=== PATIENT | female | born 1955 | race Caucasian/White ===

== ENCOUNTER 2017-06-05 09:08 | Inpatient (IN) | payer BC ==
[2017-06-05] VITALS (10 sets, daily range): BP systolic 98–132; BP diastolic 54–72; PULSE 78–107; RESP 20; TEMP 97.9–99; O2SAT 87–98
[~2017-06-05] VITALS: Ht 165.1 cm; Wt 62.4 kg
[~2017-06-05 09:08] MED LIST: CALC600T10 PO; GABA100C4 PO; HYDR-3533 PO; KRIL1CAP9 PO; MELO7.5 PO; MONT10TA2 PO; MSIR15 PO; MULT1TAB46 PO; NORC10TA2 PO; PROM25SU8 PO; PROT40TA PO; SPIR25TA PO; SUCR1TAB PO; TAMS0.4C4 PO
--- NOTE | 2017-06-05 09:37 | PD ---
HPI Chief Complaint: right-sided chest pain Time Seen by Provider: 09:28 Travel History International Travel<30 days: No Contact w/Intl Traveler<30days: No Traveled to known affect area: No History of Present Illness HPI This 62-year-old female says she been having right-sided chest pain for the last 2 days. Pain is aggravated by deep breathing. She's been coughing up some brownish phlegm. She does not smoke. She was recently in [place] and returned about a week or 2 ago. The person she was staying with was coughing While there she killed a scorpion but didn't think she was bitten by it. She did bruise her left arm. She has a [id number] history of smoking. She does see Dr. JUAN DANIEL persaud HASmaoen following her for lung nodules. She had a scan of the chest April 29 of this year which indicates the left lung was clear there was minimal scarring at the right lung base and very subtle history and but infiltrate in the right upper and lower lobes as well as the right middle lobe which had been noted on previous CT scans. She has a history of migraine headaches and says she is having a migraine now. She has taken Imitrex in the past PFSH Past Medical History Hx Anticoagulant Therapy: No Cancer: No Cardiovascular Problems: No Chemotherapy: No Cerebrovascular Accident: No Diabetes: No Diminished Hearing: No Endocrine: No Genitourinary: Yes (BLADDER SPASM) Hepatitis: No Hiatal Hernia: No Immune Disorder: No Insomnia: Yes Musculoskeletal: Yes (ARTHRITIS) Neurologic: No Psychiatric: No Reproductive: No Respiratory: No Thyroid Disease: No Past Surgical History AICD: No Body Medical Devices: RIGHT ANKLE PINS Hysterectomy: No Joint Replacement: Yes (LEFT HIP) Pacemaker: No Social History Alcohol Use: Yes Tobacco Use: No Substance Use: No Allergies-Medications (Allergen,Severity, Reaction): Coded Allergies: penicillin G (Unverified Allergy, Severe, 06/05/17) Reported Meds & Prescriptions Reported Meds & Active Scripts Active Reported Sucralfate 1 Gram Tab 1 Gm PO TID on empty stomach Meloxicam 7.5 Mg Tab 7.5 Mg PO BID Singulair (Montelukast Sodium) 10 Mg Tab 10 Mg PO HS Tamsulosin (Tamsulosin HCl) 0.4 Mg Cap 0.8 Mg PO HS Multiple Vitamin 1 Tab 1 Tab PO DAILY Protonix (Pantoprazole Sodium) 40 Mg Tab 40 Mg PO DAILY Spironolactone 25 Mg Tab 25 Mg PO DAILY Morphine ER (Morphine Sulfate) 15 Mg Tab 15 Mg PO Q8H Gabapentin 100 Mg Cap 100 Mg PO BID Review of Systems General / Constitutional: No: Fever, Chills Eyes: No: Diploplia, Blurred Vision HENT: No: Headaches, Vertigo Cardiovascular: No: Chest Pain or Discomfort, Palpitations Respiratory: Positive: Cough, Shortness of Breath, Pleuritic Pain Gastrointestinal: Positive: Nausea, No: Vomiting Genitourinary: No: Urgency, Frequency Skin: No Rash Neurologic: Positive: Weakness, Headache Endocrine: No: Heat Intolerance, Cold Intolerance Hematologic/Lymphatic: No: Easy Bruising Physical Exam Narrative GENERAL: Well-developed female SKIN: Focused skin assessment warm/dry. HEAD: Atraumatic. Normocephalic. EYES: Pupils equal and round. No scleral icterus. No injection or drainage. ENT: No nasal bleeding or discharge. Mucous membranes pink and moist. NECK: Trachea midline. No JVD. CARDIOVASCULAR: Regular rate and rhythm. No murmur appreciated. RESPIRATORY: There is accessory muscle use. There are bilateral rhonchi and wheezes. There are some rales more prominent on the right side GASTROINTESTINAL: Abdomen soft, non-tender, nondistended. Hepatic and splenic margins not palpable. MUSCULOSKELETAL: No obvious deformities. No clubbing. No cyanosis. No edema. There is some bruising on her left arm NEUROLOGICAL: Awake and alert. No obvious cranial nerve deficits. Motor grossly within normal limits. Normal speech. PSYCHIATRIC: Appropriate mood and affect; insight and judgment normal. Data Data Last Documented VS Vital Signs Date Time Temp Pulse Resp B/P (MAP) Pulse Ox O2 Delivery O2 Flow Rate FiO2 06/05/17 12:20 100 20 112/61 (78) 96 Nasal Cannula 2.00 06/05/17 09:30 97.9 Orders Orders Complete Blood Count With Diff (06/05/17 09:34) Comprehensive Metabolic Panel (06/05/17 09:34) Troponin I (06/05/17 09:34) D-Dimer (06/05/17 09:34) Magnesium (Mg) (06/05/17 09:34) Albuterol-Ipratropium Neb (Duoneb Neb) (06/05/17 09:45) Chest, Single Ap (06/05/17 09:56) B-Type Natriuretic Peptide (06/05/17 10:27) Blood Culture (06/05/17 10:27) Influenzae A/B Antigen (06/05/17 10:27) Ct Pulmonary Angiogram (06/05/17 10:27) Ceftriaxone Inj (Rocephin Inj) (06/05/17 10:45) Azithromycin Inj (Zithromax Inj) (06/05/17 10:45) Potassium Chloride (Kcl) (06/05/17 11:00) Iohexol 350 Inj (Omnipaque 350 Inj) (06/05/17 11:15) Ondansetron Inj (Zofran Inj) (06/05/17 11:45) Ketorolac Inj (Toradol Inj) (06/05/17 11:45) Electrocardiogram (06/05/17 ) Diet Regular Basic (06/05/17 Lunch) Sputum Fungus Cult And Stain (06/05/17 12:08) Admit Order (Ed Use Only) (06/05/17 12:19) Labs Laboratory Tests Test 06/05/17 09:43 06/05/17 09:44 White Blood Count 10.4 TH/MM3 Red Blood Count 4.99 MIL/MM3 Hemoglobin 14.1 GM/DL Hematocrit 44.4 % Mean Corpuscular Volume 88.8 FL Mean Corpuscular Hemoglobin 28.3 PG Mean Corpuscular Hemoglobin Concent 31.9 % Red Cell Distribution Width 13.2 % Platelet Count 296 TH/MM3 Mean Platelet Volume 7.8 FL Neutrophils (%) (Auto) 81.0 % Lymphocytes (%) (Auto) 10.1 % Monocytes (%) (Auto) 7.9 % Eosinophils (%) (Auto) 0.7 % Basophils (%) (Auto) 0.3 % Neutrophils # (Auto) 8.5 TH/MM3 Lymphocytes # (Auto) 1.0 TH/MM3 Monocytes # (Auto) 0.8 TH/MM3 Eosinophils # (Auto) 0.1 TH/MM3 Basophils # (Auto) 0.0 TH/MM3 CBC Comment DIFF FINAL Differential Comment D-Dimer Quantitative (PE/DVT) 2.90 MG/L FEU Blood Urea Nitrogen 11 MG/DL Creatinine 0.61 MG/DL Random Glucose 106 MG/DL Total Protein 6.4 GM/DL Albumin 3.1 GM/DL Calcium Level 8.8 MG/DL Magnesium Level 1.8 MG/DL Alkaline Phosphatase 74 U/L Aspartate Amino Transf (AST/SGOT) 16 U/L Alanine Aminotransferase (ALT/SGPT) 21 U/L Total Bilirubin 0.6 MG/DL Sodium Level 136 MEQ/L Potassium Level 3.3 MEQ/L Chloride Level 99 MEQ/L Carbon Dioxide Level 29.0 MEQ/L Anion Gap 8 MEQ/L Estimat Glomerular Filtration Rate 99 ML/MIN Troponin I LESS THAN 0.02 NG/ML B-Type Natriuretic Peptide 179 PG/ML MDM Medical Decision Making Medical Screen Exam Complete: Yes Emergency Medical Condition: Yes Medical Record Reviewed: Yes Differential Diagnosis Differential includes pulmonary embolus, pneumonia, COPD Narrative Course Chest x-ray showed bilateral infiltrates with questionable loss of volume on the right. Her d-dimer was quite elevated I did order a CT pulmonary angiogram. There is no evidence of pulmonary embolus. There are extensive nodular opacities in the lower lobes as well as the right upper lobe. Also scattered pulmonary nodules measuring up to 5 mm is extensive consolidation in the right upper and lower lobes with air bronchograms no endobronchial lesion is seen. Impression is pneumonia it is noted this could be atypical infection including sarcoid inflammatory etiologies of malignancy. 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
[2017-06-05] MEDS ORDERED: RESP: ALBUTEROL 2.5 MG/IPRATROPIUM 0.5 MG NEB (SCH) NEB ONE (09:45)
[2017-06-05 09:50] LABS: AUTOMATED NEUTROPHIL # 8.5 TH/MM3 (1.8-7.7); BASOPHIL % 0.3 % (0.0-2.0); EOSINOPHIL # 0.1 TH/MM3 (0-0.4); EOSINOPHIL % 0.7 % (0.0-4.0); HEMATOCRIT 44.4 % (35.0-46.0); LYMPH % 10.1 % (9.0-44.0); MEAN CELL VOLUME 88.8 FL (80.0-100.0); MEAN CORPUSCULAR HEMOGLOBIN 28.3 PG (27.0-34.0); MEAN CORPUSCULAR HGB CONC 31.9 % (32.0-36.0); MONO % 7.9 % (0.0-8.0); PLATELET COUNT 296 TH/MM3 (150-450); RED BLOOD COUNT 4.99 MIL/MM3 (4.00-5.30); RED CELL DISTRIBUTION WIDTH 13.2 % (11.6-17.2); WHITE BLOOD COUNT 10.4 TH/MM3 (4.0-11.0)
[2017-06-05 09:51] LABS: HEMO FLAGS DIFF FINAL
[2017-06-05 10:02] LABS: BLOOD UREA NITROGEN 11 MG/DL (7-18); MAGNESIUM 1.8 MG/DL (1.5-2.5)
[2017-06-05 10:05] LABS: ALT (GPT) 21 U/L (10-53); AST (GOT) 16 U/L (15-37)
[2017-06-05 10:06] LABS: ANION GAP 8 MEQ/L (5-15); CHLORIDE 99 MEQ/L (98-107); GLOMERULAR FILTRATION RATE 99 ML/MIN (>89); POTASSIUM 3.3 MEQ/L (3.5-5.1); SODIUM (NA) 136 MEQ/L (136-145)
[2017-06-05 10:09] LABS: TOTAL BILIRUBIN ADULT 0.6 MG/DL (0.2-1.0)
[2017-06-05 10:10] LABS: ALKALINE PHOSPHATASE 74 U/L (45-117)
--- NOTE | 2017-06-05 10:33 | RADRPT ---
EXAM DATE/TIME: 06/05/2017 10:03 [facility] COMPARISON: No previous studies available for comparison. [facility] INDICATIONS : Right sided chest pain & short of breath. MEDICAL HISTORY : Arthritis. asthma. SURGICAL HISTORY : Carpal tunnel syndrome. Lumbar surgery. Right ankle. Left hip replacement. ENCOUNTER: Initial ACUITY: 2 days PAIN SCORE: 6/10 LOCATION: Right chest FINDINGS: A single view of the chest demonstrates consolidation right upper lobe with volume loss. Left lung cl ear. Heart normal in size. Left-sided rib fractures are seen, appear subacute/chronic. CONCLUSION: Patchy consolidative changes right upper lobe with volume loss. Underlying mass cannot be excluded. C T chest recommended. Abhinav Greenberg MD on June 05, 2017 at 10:24 Board Certified Radiologist. This report was verified electronically.
[2017-06-05] MEDS ORDERED: AZITHROMYCIN INJ 500 MG in SODIUM CHLOR 0.9% 250 ML INJ 250 ML IV ONE (10:45)
[2017-06-05] MEDS ORDERED: cefTRIAXone INJ 2,000 MG in SODIUM CHLORIDE 0.9% INJ 100 ML IV ONE (10:45)
[2017-06-05] MEDS ORDERED: POTASSIUM CHLORIDE 20 MEQ CONTROLLED RELEASE TAB PO ONE (11:00)
[2017-06-05] MEDS ORDERED: GABA100C4 PO (11:11)
[2017-06-05] MEDS ORDERED: MULTTAB67 PO (11:11)
[2017-06-05] MEDS ORDERED: MELO7.5T27 PO (11:11)
[2017-06-05] MEDS ORDERED: TAMS0.4C4 PO (11:11)
[2017-06-05] MEDS ORDERED: MORP1TAB24 PO (11:11)
[2017-06-05] MEDS ORDERED: PROT40TA PO (11:11)
[2017-06-05] MEDS ORDERED: SPIR25TA PO (11:11)
[2017-06-05] MEDS ORDERED: MONT10TA2 PO (11:11)
[2017-06-05] MEDS ORDERED: SUCR1TAB PO (11:12)
[2017-06-05] MEDS ORDERED: IOHEXOL 350 MG/ML 10 ML VIAL (for RAD DIAG) IVCONTRAST ONE (11:15)
--- NOTE | 2017-06-05 11:33 | RADRPT ---
EXAM DATE/TIME: 06/05/2017 11:05 This report includes an Addendum and supersedes previous reports for this exam. [facility] COMPARISON: CHEST SINGLE AP, June 05, 2017, 10:03. INDICATIONS : Short of breath and cough. Right chest pain. Elevated D-dimer. Abnormal chest x- ray. IV CONTRAST: 75 cc Omnipaque 350 (iohexol) IV RADIATION DOSE: 9.32 CTDIvol (mGy) MEDICAL HISTORY : Asthma. SURGICAL HISTORY : Tubal ligation. ENCOUNTER: Initial ACUITY: 2 days PAIN SCALE: 5/10 LOCATION: Right chest TECHNIQUE: Volumetric scanning of the chest was performed using a pulmonary embolism protocol MIP images were reconstructed. Using automated exposure control and adjustment of the mA and/or kV acco rding to patient size, radiation dose was kept as low as reasonably achievable to obtain optimal diag nostic quality images. DICOM format image data is available electronically for review and compariso n. Follow-up recommendations for detected pulmonary nodules are based at a minimum on nodule size and pa tient risk factors according to Fleischner Society Guidelines. FINDINGS: PULMONARY ARTERIES:No filling defects are seen in the pulmonary arteries through the segmental level. LUNGS: Extensive nodular interstitial opacities in the lower lobes laterally as well as the right upper lobe. There are also scattered pulmonary nodules measuring up to 5 mm. There is extensive cent ral dense airspace consolidation in the right upper and lower lobes with air bronchograms. No definit aj central endobronchial lesion is demonstrated. PLEURAE: Small right-sided pleural effusion. MEDIASTINUM: Several slightly prominent mediastinal and right hilar lymph nodes. Heart is unremar kable without significant pericardial effusion. MUSCULOSKELETAL: Within normal limits for patient age. MISCELLANEOUS: The visualized upper abdominal organs demonstrate no acute abnormality. CONCLUSION: 1. No CT evidence for pulmonary artery embolism. 2. Extensive nodular interstitial opacities with scattered sub-5 mm pulmonary nodules throughout the right upper, lower and left lower lobes. 3. Extensive central dense airspace consolidation in the right upper and lower lobes with air broncho grams. No evidence for definite focal central lung or endobronchial lung mass. 4. Favor multilobar pneumonia or atypical infection although differential considerations include sarc oidosis, inflammatory etiologies and malignancy. Maged Murphy MD on June 05, 2017 at 11:18 Board Certified Radiologist. This report was verified electronically. ADDENDUM: The following was omitted from the report. The thyroid gland is heterogeneous and contains multiple n odules with a dominant 2 cm exophytic nodule in the left lobe. Further evaluation may be performed wi outpatient ultrasound as indicated. Maged Murphy MD on June 05, 2017 at 11:47 Board Certified Radiologist. This report was verified electronically.
[2017-06-05] MEDS ORDERED: KETOROLAC TROMETHAMINE 30 MG/ML (IVP) VIAL IV PUSH ONE (11:45)
[2017-06-05] MEDS ORDERED: ONDANSETRON HCL 4 MG/2 ML VIAL IV PUSH ONE (11:45)
--- NOTE | 2017-06-05 12:52 | HHI.HP ---
[facility] Service [facility] Primary Care Physician Slava Toledo MD Admission Diagnosis PNEUMONIA Diagnoses: (1) Pneumonia Chief Complaint: Shortness of breath Cough Travel History International Travel<30 Days: No Contact w/Intl Traveler <30 Da: No Traveled to Known Affected Are: No History of Present Illness Written by Ana Maria Shepherd, acting as scribe for Dr. Cummings on 06/05/17 at 12:43. Ms. Boo is a pleasant 62-year-old female patient with a known medical history of asthma, tobacco use history and chronic lung nodules who presented to the ED with worsening shortness of breath and cough. Patient states that she has recently traveled to [place] and arrived back here on Saturday and developed a productive cough with associated worsening shortness of breath on Saturday night. Patient states that she has a productive cough with brown/red coloration. She states that she also has chest pain associated with her cough. The chest pain is located in her right-sided chest that radiates to her back, rated a 4/10 on pain scale, worse with coughing and activity, constant and sharp in nature, denies any relieving factors. Denies any significant cardiac history. Patient does suffer from chronic back pain and has been taking PO Morphine with no relief. Denies any sick contacts. Denies frequent illness or any past fungal exposure. Denies any recent fever, chills, abdominal pain, nausea, vomiting or diarrhea. PCP is Dr. Amin. Steel Detailer is Dr. Presley. Review of Systems Constitutional: DENIES: Fever, Chills Eyes: COMPLAINS OF: Eye inflammation (right eye erythema), DENIES: Blurred vision, Diplopia Respiratory: COMPLAINS OF: Cough, Sputum production, Shortness of breath Cardiovascular: COMPLAINS OF: Chest pain, DENIES: Palpitations Gastrointestinal: DENIES: Abdominal pain, Constipation, Diarrhea, Nausea, Vomiting Psychiatric: DENIES: Anxiety Except as stated in HPI: all other systems reviewed are Neg Past Family Social History Past Medical History Asthma Arthritis Bladder spasm Tobacco abuse history Chronic lung nodules Past Surgical History Right rotator cuff repair Bilateral ankle repair Left hip replacement Reported Medications Active Reported Sucralfate 1 Gram Tab 1 Gm PO TID on empty stomach Meloxicam 7.5 Mg Tab 7.5 Mg PO BID Singulair (Montelukast Sodium) 10 Mg Tab 10 Mg PO HS Tamsulosin (Tamsulosin HCl) 0.4 Mg Cap 0.8 Mg PO HS Multiple Vitamin 1 Tab 1 Tab PO DAILY Protonix (Pantoprazole Sodium) 40 Mg Tab 40 Mg PO DAILY Spironolactone 25 Mg Tab 25 Mg PO DAILY Morphine ER (Morphine Sulfate) 15 Mg Tab 15 Mg PO Q8H Gabapentin 100 Mg Cap 100 Mg PO BID Allergies: Coded Allergies: penicillin G (Unverified Allergy, Severe, 06/05/17) Family History Maternal medical history significant for smoking history with COPD. Social History Admits to a [id number] smoking history. Denies any alcohol use. Denies any illicit drug use. Physical Exam Vital Signs Vital Signs Date Time Temp Pulse Resp B/P (MAP) Pulse Ox O2 Delivery O2 Flow Rate FiO2 06/05/17 11:00 107 20 120/58 (78) 95 Room Air 06/05/17 09:41 94 Room Air 06/05/17 09:30 97.9 105 20 132/64 (86) 97 Physical Exam GENERAL: This is a well-nourished, well-developed female patient, lying in bed on supplemental O2 with apparent shortness of breath, some accessory muscle use. SKIN: No rashes. Left forearm bruising and swelling patient states she bumped it a week ago. Diaphoretic and warm HEENT: Atraumatic. Normocephalic. Pupils equal round and reactive. Extraocular motions intact. No scleral icterus. No injection or drainage. Nose without bleeding. Uvula midline. Airway patent. NECK: Trachea midline. No JVD or lymphadenopathy. Supple. CARDIOVASCULAR: Regular rate and rhythm without murmurs, gallops, or rubs. RESPIRATORY: Crackles noted throughout all lung quiroz, elena right posterior upper and lower lobes. Breath sounds equal bilaterally. GASTROINTESTINAL: Abdomen soft, non-tender, nondistended. No guarding. MUSCULOSKELETAL: Extremities without clubbing, cyanosis, or edema. No joint tenderness, effusion, or edema noted. NEUROLOGICAL: Awake and alert. Cranial nerves II through XII intact. Motor and sensory grossly within normal limits. Five out of 5 muscle strength in all muscle groups. Normal speech. Laboratory Laboratory Tests Test 06/05/17 09:43 06/05/17 09:44 White Blood Count 10.4 Red Blood Count 4.99 Hemoglobin 14.1 Hematocrit 44.4 Mean Corpuscular Volume 88.8 Mean Corpuscular Hemoglobin 28.3 Mean Corpuscular Hemoglobin Concent 31.9 Red Cell Distribution Width 13.2 Platelet Count 296 Mean Platelet Volume 7.8 Neutrophils (%) (Auto) 81.0 Lymphocytes (%) (Auto) 10.1 Monocytes (%) (Auto) 7.9 Eosinophils (%) (Auto) 0.7 Basophils (%) (Auto) 0.3 Neutrophils # (Auto) 8.5 Lymphocytes # (Auto) 1.0 Monocytes # (Auto) 0.8 Eosinophils # (Auto) 0.1 Basophils # (Auto) 0.0 CBC Comment DIFF FINAL Differential Comment D-Dimer Quantitative (PE/DVT) 2.90 Blood Urea Nitrogen 11 Creatinine 0.61 Random Glucose 106 Total Protein 6.4 Albumin 3.1 Calcium Level 8.8 Magnesium Level 1.8 Alkaline Phosphatase 74 Aspartate Amino Transf (AST/SGOT) 16 Alanine Aminotransferase (ALT/SGPT) 21 Total Bilirubin 0.6 Sodium Level 136 Potassium Level 3.3 Chloride Level 99 Carbon Dioxide Level 29.0 Anion Gap 8 Estimat Glomerular Filtration Rate 99 Troponin I LESS THAN 0.02 B-Type Natriuretic Peptide 179 Date/Time Source Procedure Growth Status 06/05/17 11:00 Blood Peripheral Aerobic Blood Culture Pending Received 06/05/17 11:00 Blood Peripheral Anaerobic Blood Culture Pending Received 06/05/17 10:50 Nasal Washing Influenza Types A,B Antigen (GWENDOLYN) - Final NEGATIVE FOR FLU A AND B ANTIGEN.... Complete Result Diagram: 06/06/17 0430 06/06/[address] Angiography 06/05/17 1027 Signed Impressions: Service Date/Time: Monday, June 05, 2017 11:05 - CONCLUSION: 1. No CT evidence for pulmonary artery embolism. 2. Extensive nodular interstitial opacities with scattered sub-5 mm pulmonary nodules throughout the right upper , lower and left lower lobes. 3. Extensive central dense airspace consolidation in the right upper and lower lobes with air bronchograms. No evidence for definite focal central lung or endobronchial lung mass. 4. Favor multilobar pneumonia or atypical infection although differential considerations include sarcoidosis, inflammatory etiologies and malignancy. Maged Murphy MD ADDENDUM: The following was omitted from the report. The thyroid gland is heterogeneous and contains multiple nodules with a dominant 2 cm exophytic nodule in the left lobe. Further evaluation may be performed with outpatient ultrasound as indicated. Maged Murphy MD Chest X-Ray 06/05/17 0956 Signed Impressions: Service Date/Time: Monday, June 05, 2017 10:03 - CONCLUSION: Patchy consolidative changes right upper lobe with volume loss. Underlying mass cannot be excluded. CT chest recommended. Abhinav Greenberg MD Caprinzenno VTE Risk Assessment Caprini VTE Risk Assessment: No/Low Risk (score <= 1) Caprini Risk Assessment Model Point Value = 1 Point Value = 2 Point Value = 3 Point Value = 5 Age 41-60 Minor surgery BMI > 25 kg/m2 Swollen legs Varicose veins or History of unexplained or recurrent spontaneous Oral contraceptives or hormone replacement Sepsis (< 1 month) Serious lung disease, including pneumonia (< 1 month) Abnormal pulmonary function Acute myocardial infarction Congestive heart failure (< 1 month) History of inflammatory bowel disease Medical patient at bed rest Age 61-74 Arthroscopic surgery Major open surgery (> 45 min) Laparoscopic surgery (> 45 min) Malignancy Confined to bed (> 72 hours) Immobilizing plaster cast Central venous access Age >= 75 History of VTE Family history of VTE Factor V Leiden Prothrombin [id number] Lupus anticoagulant Anticardiolipin antibodies Elevated serum homocysteine Heparin-induced thrombocytopenia Other congenital or acquired thrombophilia Stroke (< 1 month) Elective arthroplasty Hip, pelvis, or leg fracture Acute spinal cord injury (< 1 month) Prophylaxis Regimen Total Risk Factor Score Risk Level Prophylaxis Regimen 0-1 Low Early ambulation 2 Moderate Order ONE of the following: *Sequential Compression Device (SCD) *Heparin 5000 units SQ BID 3-4 Higher Order ONE of the following medications: *Heparin 5000 units SQ TID *Enoxaparin/Lovenox 40 mg SQ daily (WT < 150 kg, CrCl > 30 mL/min) *Enoxaparin/Lovenox 30 mg SQ daily (WT < 150 kg, CrCl > 10-29 mL/min) *Enoxaparin/Lovenox 30 mg SQ BID (WT < 150 kg, CrCl > 30 mL/min) AND/OR *Sequential Compression Device (SCD) 5 or more Highest Order ONE of the following medications: *Heparin 5000 units SQ TID (Preferred with Epidurals) *Enoxaparin/Lovenox 40 mg SQ daily (WT < 150 kg, CrCl > 30 mL/min) *Enoxaparin/Lovenox 30 mg SQ daily (WT < 150 kg, CrCl > 10-29 mL/min) *Enoxaparin/Lovenox 30 mg SQ BID (WT < 150 kg, CrCl > 30 mL/min) AND *Sequential Compression Device (SCD) Assessment and Plan Problem List: (1) Pneumonia ICD Code: J18.9 - Pneumonia, unspecified organism Status: Acute Plan: Patient will be admitted for IV antibiotic administration. D-dimer upon presentation was 2.9. Chest CTA reviewed which was negative for PE. Extensive nodular interstitial opacities scattered. These are chronic and are being followed by Dr. Presley in the outpatient setting. Will attempt to obtain records of last CT for comparison. Follow. Also there is airspace consolidation in the right upper and lower lobes with air bronchograms. Start on Duonebs scheduled and PRN. BC have been drawn and pending. Follow. Monitor for any signs of infection. Patient has been afebrile. Influenza negative. CBC reviewed, WBC WNL. Supplemental O2 as needed. Continue cardiac telemetry. Was given Rocephin and Azithromycin IV in ED. Will continue Azithromycin IV. Additionally start on Levaquin IV. (2) Lung nodule, multiple ICD Code: R91.8 - Other nonspecific abnormal finding of lung field Status: Chronic Plan: Chest CTA reviewed, as above. Patient is being followed by Dr. Presley in the outpatient setting. Will request records of last CT scan and progress note for comparison. Continue to follow. (3) Hypokalemia ICD Code: E87.6 - Hypokalemia Plan: K 3.3 on presentation. Supplement given in ED. Follow BMP. Code Status DNR. Discussed Condition With Patient Physician Certification 2 Midnight Certification Type: Admission for Inpatient Services Order for Inpatient Services The services are ordered in accordance with Medicare regulations or non- Medicare payer requirements, as applicable. In the case of services not specified as inpatient-only, they are appropriately provided as inpatient services in accordance with the 2-midnight benchmark. Estimated LOS (days): 2 2 days is the estimated time the patient will need to remain in the hospital, assuming treatment plan goals are met and no additional complications. Post-Hospital Plan: Home Medical Decision Making Impression and Plan This note was transcribed by scribe [[email or web address]]. I, Dr. Chayo Cummings personally performed the history, physical exam, and medical decision making; and confirmed the accuracy of the information in the transcribed note. patient seen and examined in the ER with Niko, Note signed today Authenticated by Dr. Chayo Cummings on 06/06/17 at 12:42. Ana Maria Shepherd Jun 05, 2017 12:52 Chayo Cummings MD Jun 06, 2017 12:43
[2017-06-05] MEDS ORDERED: RESP: ALBUTEROL 2.5 MG/IPRATROPIUM 0.5 MG NEB (PRN) NEB (13:15)
[2017-06-05] MEDS ORDERED: SODIUM CHLORIDE 0.9% FLUSH 10 ML FLUSH IV FLUSH PRN (13:15)
[2017-06-05] MEDS ORDERED: MAGNESIUM HYDROXIDE SUSP 30 ML CUP PO PRN (13:15)
[2017-06-05] MEDS ORDERED: ACETAMINOPHEN 325 MG TAB PO PRN (13:15)
[2017-06-05] MEDS ORDERED: SENNOSIDES 8.6 MG TAB PO PRN (13:15)
[2017-06-05] MEDS ORDERED: BISACODYL 10 MG SUPP RECTAL PRN (13:15)
[2017-06-05] MEDS ORDERED: ONDANSETRON HCL 4 MG/2 ML VIAL IVP PRN (13:15)
[2017-06-05] MEDS ORDERED: NALOXONE HCL 0.4 MG/ML AMP IV PUSH PRN (13:15)
--- NOTE | 2017-06-05 14:52 | EKG ---
Date Performed: 06/05/2017 Time Performed: 09:24:19 PTAGE: 62 years EKG: SINUS TACHYCARDIA NONSPECIFIC T-WAVE ABNORMALITY ABNORMAL RHYTHM ECG PREVIOUS TRACING : 08/11/2015 23.46 DOCTOR: Eduardo Blanca Interpretating Date/Time 06/05/2017 14:50:33
[2017-06-05] MEDS: RESP: ALBUTEROL 2.5 MG/IPRATROPIUM 0.5 MG NEB (SCH) NEB ×2 (15:21→19:43)
[2017-06-05] MEDS: SODIUM CHLOR 0.45% 1000 ML INJ 1,000 ML IV SCH (16:55)
[2017-06-05] MEDS: LEVOFLOXACIN 750 MG PREMIX INJ 150 ML IV SCH (16:56)
[2017-06-05] MEDS: HEPARIN SODIUM - SQ 10,000 UNITS/ML VIAL SQ SCH (17:10)
[2017-06-05] MEDS: SODIUM CHLORIDE 0.9% FLUSH 10 ML FLUSH IV FLUSH SCH (20:53)
[2017-06-05] MEDS: DOCUSATE SODIUM 50 MG/SENNA 8.6 MG TAB PO SCH (20:54)
[2017-06-05] MEDS ORDERED: ESZOPICLONE 2 MG TAB PO ONE (23:00)
[2017-06-05] MEDS: TAMSULOSIN HCL 0.4 MG CAP PO SCH (23:15)
[2017-06-05] MEDS: MORPHINE SULFATE 15 MG CONTROLLED RELEASE TAB PO SCH (23:16)
[2017-06-05] MEDS: GABAPENTIN 100 MG CAP PO SCH (23:16)
[2017-06-05] MEDS ORDERED: ESZOPICLONE 1 MG TAB PO ONE (23:30)
[2017-06-05] MEDS ORDERED: ESZOPICLONE 3 MG TAB PO ONE (23:45)
[2017-06-06] VITALS (8 sets, daily range): BP systolic 102–126; BP diastolic 56–68; PULSE 87–219; RESP 16–20; TEMP 96.7–98.7; O2SAT 94–98
[2017-06-06] MEDS: MELOXICAM 7.5 MG TAB PO SCH ×3 (00:01→21:34)
[2017-06-06] MEDS: HEPARIN SODIUM - SQ 10,000 UNITS/ML VIAL SQ SCH ×2 (03:11→14:12)
[2017-06-06] MEDS: SODIUM CHLOR 0.45% 1000 ML INJ 1,000 ML IV SCH ×2 (03:12→14:12)
[2017-06-06 06:11] LABS: AUTOMATED NEUTROPHIL # 5.6 TH/MM3 (1.8-7.7); BASOPHIL # 0.1 TH/MM3 (0-0.2); BASOPHIL % 0.7 % (0.0-2.0); EOSINOPHIL # 0.1 TH/MM3 (0-0.4); EOSINOPHIL % 1.1 % (0.0-4.0); HEMATOCRIT 34.1 % (35.0-46.0); HEMO FLAGS DIFF FINAL; LYMPH % 13.2 % (9.0-44.0); MEAN CORPUSCULAR HEMOGLOBIN 28.3 PG (27.0-34.0); MEAN CORPUSCULAR HGB CONC 32.9 % (32.0-36.0); MONO % 6.8 % (0.0-8.0); NEUT % 78.2 % (16.0-70.0); PLATELET COUNT 237 TH/MM3 (150-450); RED BLOOD COUNT 3.97 MIL/MM3 (4.00-5.30); RED CELL DISTRIBUTION WIDTH 12.7 % (11.6-17.2); WHITE BLOOD COUNT 7.3 TH/MM3 (4.0-11.0)
[2017-06-06 06:13] LABS: POTASSIUM 3.2 MEQ/L (3.5-5.1)
[2017-06-06 06:17] LABS: BICARBONATE 30.7 MEQ/L (21.0-32.0)
[2017-06-06] MEDS: MORPHINE SULFATE 15 MG CONTROLLED RELEASE TAB PO SCH ×3 (06:37→21:36)
[2017-06-06] MEDS: RESP: ALBUTEROL 2.5 MG/IPRATROPIUM 0.5 MG NEB (SCH) NEB ×4 (07:45→19:39)
--- NOTE | 2017-06-06 08:51 | HHI.PR ---
Subjective Remarks Written by Ana Maria Shepherd, acting as scribe for Dr. Cummings on 06/06/17 at 0851. Follow up PNA. Patient seen and examined, sitting up in bed on 2 L NC supplemental O2 eating breakfast. States she slept well. Breathing is much improved. Denies any fevers, chills, chest pain or shortness of breath. VSS. Afebrile. Eating well. Denies any ab pain, n/v/d. Objective Vitals Vital Signs Date Time Temp Pulse Resp B/P (MAP) Pulse Ox O2 Delivery O2 Flow Rate FiO2 06/06/17 07:55 18 06/06/17 07:45 94 Nasal Cannula 2.00 06/06/17 04:00 97.8 87 16 102/62 (75) 98 06/05/17 23:53 98.9 89 20 98/54 (69) 96 06/05/17 21:00 78 06/05/17 20:00 99.0 101 20 113/72 (86) 95 06/05/17 19:42 98 Nasal Cannula 2.00 06/05/17 15:23 87 21 06/05/17 13:32 95 20 108/60 (76) 97 Nasal Cannula 2.00 06/05/17 13:00 19 06/05/17 12:20 100 20 112/61 (78) 96 Nasal Cannula 2.00 06/05/17 12:05 97 Nasal Cannula 2.00 06/05/17 12:00 89 Room Air 06/05/17 11:00 107 20 120/58 (78) 95 Room Air 06/05/17 09:41 94 Room Air 06/05/17 09:30 97.9 105 20 132/64 (86) 97 I/O 06/05/17 06/05/17 06/05/17 06/06/17 06/06/17 06/06/17 07:00 15:00 23:00 07:00 15:00 23:00 Intake Total 350 ml 480 ml 1287 ml Balance 350 ml 480 ml 1287 ml Intake Oral 480 ml 480 ml IV Total 350 ml 807 ml # Voids 1 2 # Bowel Movements 0 0 Result Diagram: 06/06/17 0430 06/06/17 [address] Angiography 06/05/17 1027 Signed Impressions: Service Date/Time: Monday, June 05, 2017 11:05 - CONCLUSION: 1. No CT evidence for pulmonary artery embolism. 2. Extensive nodular interstitial opacities with scattered sub-5 mm pulmonary nodules throughout the right upper , lower and left lower lobes. 3. Extensive central dense airspace consolidation in the right upper and lower lobes with air bronchograms. No evidence for definite focal central lung or endobronchial lung mass. 4. Favor multilobar pneumonia or atypical infection although differential considerations include sarcoidosis, inflammatory etiologies and malignancy. Maged Murphy MD ADDENDUM: The following was omitted from the report. The thyroid gland is heterogeneous and contains multiple nodules with a dominant 2 cm exophytic nodule in the left lobe. Further evaluation may be performed with outpatient ultrasound as indicated. Maged Murphy MD Chest X-Ray 06/05/17 0956 Signed Impressions: Service Date/Time: Monday, June 05, 2017 10:03 - CONCLUSION: Patchy consolidative changes right upper lobe with volume loss. Underlying mass cannot be excluded. CT chest recommended. Abhinav Greenberg MD Objective Remarks GENERAL: This is a well-nourished, well-developed female patient, sitting up in bed comfortably on 2LNC. SKIN: No rashes. Left forearm bruising and swelling patient states she bumped it a week ago. Diaphoretic and warm HEENT: Atraumatic. Normocephalic. Pupils equal round and reactive. Extraocular motions intact. No scleral icterus. No injection or drainage. Nose without bleeding. Uvula midline. Airway patent. NECK: Trachea midline. No JVD or lymphadenopathy. Supple. CARDIOVASCULAR: Regular rate and rhythm without murmurs, gallops, or rubs. RESPIRATORY: Crackles noted throughout all lung quiroz, elena right posterior upper and lower lobes. Breath sounds equal bilaterally. GASTROINTESTINAL: Abdomen soft, non-tender, nondistended. No guarding. MUSCULOSKELETAL: Extremities without clubbing, cyanosis, or edema. No joint tenderness, effusion, or edema noted. NEUROLOGICAL: Awake and alert. Cranial nerves II through XII intact. Motor and sensory grossly within normal limits. Five out of 5 muscle strength in all muscle groups. Normal speech. A/P Problem List: (1) Pneumonia ICD Code: J18.9 - Pneumonia, unspecified organism Status: Acute Plan: Patient will be admitted for IV antibiotic administration. D-dimer upon presentation was 2.9. Chest CTA reviewed which was negative for PE. Extensive nodular interstitial opacities scattered. These are chronic and are being followed by Dr. Presley in the outpatient setting. Will attempt to obtain records of last CT for comparison. Follow. Also there is airspace consolidation in the right upper and lower lobes with air bronchograms. Continue Duonebs scheduled and PRN. BC have been drawn and pending. Follow. Fungal sputum culture obtained and pending. Monitor for any signs of infection. Patient has been afebrile. Influenza negative. CBC reviewed, WBC WNL. Supplemental O2 as needed. Continue cardiac telemetry. Was given Rocephin and Azithromycin IV in ED. Will continue Azithromycin IV. Additionally started on Levaquin IV. (2) Lung nodule, multiple ICD Code: R91.8 - Other nonspecific abnormal finding of lung field Status: Chronic Plan: Chest CTA reviewed, as above. Patient is being followed by Dr. Presley in the outpatient setting. Will request records of last CT scan and progress note for comparison. Continue to follow. (3) Hypokalemia ICD Code: E87.6 - Hypokalemia Plan: K 3.3 on presentation. Supplement given in ED. BMP today showing K 3.2. Replete. Attending Statement This note was transcribed by fanta [[email or web address]]. I, Dr. Chayo Cummings personally performed the history, physical exam, and medical decision making; and confirmed the accuracy of the information in the transcribed note. patient feels better likely dc in am Authenticated by Dr. Chayo Cummings on 06/06/17 at 12:44. Ana Maria Shepherd Jun 06, 2017 08:51 Chayo Cummings MD Jun 06, 2017 12:48
[2017-06-06] MEDS: DOCUSATE SODIUM 50 MG/SENNA 8.6 MG TAB PO SCH ×2 (09:26→21:34)
[2017-06-06] MEDS: SUCRALFATE 1 GM TAB PO SCH ×3 (09:26→18:41)
[2017-06-06] MEDS: GABAPENTIN 100 MG CAP PO SCH ×2 (09:27→21:34)
[2017-06-06] MEDS: SODIUM CHLORIDE 0.9% FLUSH 10 ML FLUSH IV FLUSH SCH ×2 (09:27→21:38)
[2017-06-06] MEDS: SPIRONOLACTONE 25 MG TAB PO SCH (09:27)
[2017-06-06] MEDS: PANTOPRAZOLE SOD 40 MG DELAYED RELEASE TAB PO SCH (09:27)
[2017-06-06] MEDS: AZITHROMYCIN INJ 500 MG in SODIUM CHLOR 0.9% 250 ML INJ 250 ML IV SCH (09:45)
[2017-06-06] MEDS ORDERED: POTASSIUM CHLORIDE 25 MEQ EFFERVESCENT TAB PO ONE (10:00)
[2017-06-06] MEDS: LEVOFLOXACIN 750 MG PREMIX INJ 150 ML IV SCH (14:11)
[2017-06-06] MEDS ORDERED: FLUCONAZOLE 100 MG PREMIX BAG 50 ML IV SCH (16:00)
[2017-06-06] MEDS: NYSTATIN SUSP 500,000 U/5 ML CUP SWISH-SWAL SCH ×2 (18:41→21:35)
[2017-06-06] MEDS: MONTELUKAST SODIUM 10 MG TAB PO SCH (21:34)
[2017-06-06] MEDS: TAMSULOSIN HCL 0.4 MG CAP PO SCH (22:56)
[2017-06-07] VITALS (9 sets, daily range): BP systolic 133–151; BP diastolic 64–88; PULSE 82–91; RESP 12–20; TEMP 95.7–98.5; O2SAT 93–98
[2017-06-07] MEDS: SODIUM CHLOR 0.45% 1000 ML INJ 1,000 ML IV SCH (02:04)
[2017-06-07] MEDS: HEPARIN SODIUM - SQ 10,000 UNITS/ML VIAL SQ SCH ×2 (02:04→12:21)
[2017-06-07] MEDS: MORPHINE SULFATE 15 MG CONTROLLED RELEASE TAB PO SCH ×3 (07:32→21:51)
[2017-06-07] MEDS: RESP: ALBUTEROL 2.5 MG/IPRATROPIUM 0.5 MG NEB (SCH) NEB ×4 (07:45→19:38)
[2017-06-07] MEDS: SUCRALFATE 1 GM TAB PO SCH ×3 (08:56→17:05)
[2017-06-07] MEDS: GABAPENTIN 100 MG CAP PO SCH ×2 (08:56→21:49)
[2017-06-07] MEDS: PANTOPRAZOLE SOD 40 MG DELAYED RELEASE TAB PO SCH (08:56)
[2017-06-07] MEDS: SPIRONOLACTONE 25 MG TAB PO SCH (08:56)
[2017-06-07] MEDS: DOCUSATE SODIUM 50 MG/SENNA 8.6 MG TAB PO SCH ×2 (08:56→21:49)
[2017-06-07] MEDS: MELOXICAM 7.5 MG TAB PO SCH ×2 (08:57→21:49)
[2017-06-07] MEDS: NYSTATIN SUSP 500,000 U/5 ML CUP SWISH-SWAL SCH ×4 (08:57→21:51)
[2017-06-07] MEDS: SODIUM CHLORIDE 0.9% FLUSH 10 ML FLUSH IV FLUSH SCH ×2 (09:00→22:45)
--- NOTE | 2017-06-07 09:19 | HHI.PR ---
Subjective Remarks Follow up PNA. Patient seen and examined, lying in bed comfortably on RA. No apparent distress, no current complaints of dyspnea. No pain. Does state that she had an episode of feeling short of breath overnight but has now resolved. Oxygen saturations have been normal. Denies any fever or chills or chest pain. Eating well. Feeling overall improving. Objective Vitals Vital Signs Date Time Temp Pulse Resp B/P (MAP) Pulse Ox O2 Delivery O2 Flow Rate FiO2 06/07/17 08:50 86 06/07/17 08:10 96 21 06/07/17 04:00 98.5 82 20 135/64 (87) 94 06/07/17 00:00 98.5 85 20 143/67 (92) 98 06/06/17 21:00 219 06/06/17 20:00 98.7 89 18 126/64 (84) 96 06/06/17 19:40 96 Nasal Cannula 2.00 06/06/17 18:03 97.9 89 16 118/68 (85) 95 06/06/17 15:26 18 06/06/17 12:00 97.8 95 18 113/56 (75) 97 I/O 06/06/17 06/06/17 06/06/17 06/07/17 06/07/17 06/07/17 07:00 15:00 23:00 07:00 15:00 23:00 Intake Total 1287 ml 1030 ml Balance 1287 ml 1030 ml Intake Oral 480 ml 580 ml IV Total 807 ml 450 ml # Voids 2 2 # Bowel Movements 0 1 Result Diagram: 06/06/17 0430 06/06/17 [address] Angiography 06/05/17 1027 Signed Impressions: Service Date/Time: Monday, June 05, 2017 11:05 - CONCLUSION: 1. No CT evidence for pulmonary artery embolism. 2. Extensive nodular interstitial opacities with scattered sub-5 mm pulmonary nodules throughout the right upper , lower and left lower lobes. 3. Extensive central dense airspace consolidation in the right upper and lower lobes with air bronchograms. No evidence for definite focal central lung or endobronchial lung mass. 4. Favor multilobar pneumonia or atypical infection although differential considerations include sarcoidosis, inflammatory etiologies and malignancy. Maged Murphy MD ADDENDUM: The following was omitted from the report. The thyroid gland is heterogeneous and contains multiple nodules with a dominant 2 cm exophytic nodule in the left lobe. Further evaluation may be performed with outpatient ultrasound as indicated. Maged Murphy MD Chest X-Ray 06/05/17 0956 Signed Impressions: Service Date/Time: Monday, June 05, 2017 10:03 - CONCLUSION: Patchy consolidative changes right upper lobe with volume loss. Underlying mass cannot be excluded. CT chest recommended. Abhinav Greenberg MD Objective Remarks GENERAL: This is a well-nourished, well-developed female patient, sitting up in bed comfortably on RA SKIN: No rashes. Left forearm bruising and swelling patient states she bumped it a week ago. Diaphoretic and warm HEENT: Atraumatic. Normocephalic. Pupils equal round and reactive. Extraocular motions intact. No scleral icterus. No injection or drainage. Nose without bleeding. Uvula midline. Airway patent. NECK: Trachea midline. No JVD or lymphadenopathy. Supple. CARDIOVASCULAR: Regular rate and rhythm without murmurs, gallops, or rubs. RESPIRATORY: Crackles noted throughout all lung quiroz, elena right posterior upper and lower lobes. Breath sounds equal bilaterally. GASTROINTESTINAL: Abdomen soft, non-tender, nondistended. No guarding. MUSCULOSKELETAL: Extremities without clubbing, cyanosis, or edema. No joint tenderness, effusion, or edema noted. NEUROLOGICAL: Awake and alert. Cranial nerves II through XII intact. Motor and sensory grossly within normal limits. Five out of 5 muscle strength in all muscle groups. Normal speech. A/P Problem List: (1) Pneumonia ICD Code: J18.9 - Pneumonia, unspecified organism Status: Acute Plan: Patient admitted for IV antibiotic administration. D-dimer upon presentation was 2.9. Chest CTA reviewed which was negative for PE. Extensive nodular interstitial opacities scattered. These are chronic and are being followed by Dr. Presley in the outpatient setting. Will attempt to obtain records of last CT for comparison. Have not received records yet. Also there is airspace consolidation in the right upper and lower lobes with air bronchograms. Continue Duonebs scheduled and PRN. BC NGTD. Continue to follow. Fungal sputum smear showing yeast, started on Diflucan x 3 doses. Awaiting culture, continue to follow. Oral thrush, given nystatin swish and swallow. Improved today. Monitor for any signs of infection. Patient has been afebrile. Influenza negative. CBC reviewed, WBC WNL. Supplemental O2 as needed. Continue cardiac telemetry. Was given Rocephin and Azithromycin IV in ED. Will continue Azithromycin IV. Additionally started on Levaquin IV. Continue home Singulair. (2) Lung nodule, multiple ICD Code: R91.8 - Other nonspecific abnormal finding of lung field Status: Chronic Plan: Chest CTA reviewed, as above. Patient is being followed by Dr. Presley in the outpatient setting. Will request records of last CT scan and progress note for comparison. Continue to follow. (3) Hypokalemia ICD Code: E87.6 - Hypokalemia Plan: K 3.3 on presentation. Supplement given in ED. BMP K 3.2. Repleted. Awaiting BMP today. Attending Statement Patient seen in follow-up for pneumonia. Doing better. Some dyspnea overnight but this appears to be resolved. Patient with significant discomfort along her IV without any signs of inflammation or infection. We'll change antibiotics to oral Levaquin. DC IV fluids and follow clinically Ana Maria Shepherd Jun 07, 2017 09:19 Chayo Cummings MD Jun 07, 2017 11:42
[2017-06-07] MEDS: AZITHROMYCIN INJ 500 MG in SODIUM CHLOR 0.9% 250 ML INJ 250 ML IV SCH (10:30)
[2017-06-07 11:47] LABS: POTASSIUM 3.1 MEQ/L (3.5-5.1)
[2017-06-07 11:50] LABS: BICARBONATE 29.9 MEQ/L (21.0-32.0)
[2017-06-07] MEDS: FLUCONAZOLE 100 MG TAB PO SCH (12:20)
[2017-06-07] MEDS: LEVOFLOXACIN 750 MG TAB PO SCH (12:21)
[2017-06-07] MEDS: MONTELUKAST SODIUM 10 MG TAB PO SCH (21:48)
[2017-06-07] MEDS: TAMSULOSIN HCL 0.4 MG CAP PO SCH (21:49)
[2017-06-07] MEDS ORDERED: ESZOPICLONE 3 MG TAB PO ONE (22:15)
[2017-06-08] VITALS: BP 145/74; PULSE 76; RESP 20; TEMP 99.4; O2SAT 94
[2017-06-08] MEDS: HEPARIN SODIUM - SQ 10,000 UNITS/ML VIAL SQ SCH (01:53)
[2017-06-08] MEDS: MORPHINE SULFATE 15 MG CONTROLLED RELEASE TAB PO SCH (06:09)
[2017-06-08] MEDS: RESP: ALBUTEROL 2.5 MG/IPRATROPIUM 0.5 MG NEB (SCH) NEB (07:27)
[2017-06-08 07:32] VITALS: O2SAT 96
[2017-06-08] MEDS ORDERED: POTASSIUM CHLORIDE 25 MEQ EFFERVESCENT TAB PO ONE (07:45)
[2017-06-08 08:00] VITALS: BP 152/77; PULSE 83; RESP 18; TEMP 96.5; O2SAT 94
[2017-06-08] MEDS: MELOXICAM 7.5 MG TAB PO SCH (08:33)
[2017-06-08] MEDS: SUCRALFATE 1 GM TAB PO SCH (08:33)
[2017-06-08] MEDS: FLUCONAZOLE 100 MG TAB PO SCH (08:37)
[2017-06-08] MEDS: LEVOFLOXACIN 750 MG TAB PO SCH (08:37)
[2017-06-08] MEDS: SODIUM CHLORIDE 0.9% FLUSH 10 ML FLUSH IV FLUSH SCH (08:37)
[2017-06-08] MEDS: GABAPENTIN 100 MG CAP PO SCH (08:38)
[2017-06-08] MEDS: PANTOPRAZOLE SOD 40 MG DELAYED RELEASE TAB PO SCH (08:38)
[2017-06-08] MEDS: NYSTATIN SUSP 500,000 U/5 ML CUP SWISH-SWAL SCH (08:39)
[2017-06-08] MEDS: DOCUSATE SODIUM 50 MG/SENNA 8.6 MG TAB PO SCH (08:39)
[2017-06-08 09:11] LABS: POTASSIUM 3.1 MEQ/L (3.5-5.1)
[2017-06-08 09:15] LABS: BICARBONATE 26.9 MEQ/L (21.0-32.0); MAGNESIUM 1.6 MG/DL (1.5-2.5)
--- NOTE | 2017-06-08 09:36 | HHI.DS ---
Discharge Summary Admission Date Jun 05, 2017 at 12:20 Discharge Date: Jun 08, 2017 Admitting Diagnosis PNEUMONIA (1) Pneumonia ICD Code: J18.9 - Pneumonia, unspecified organism Status: Acute (2) Lung nodule, multiple ICD Code: R91.8 - Other nonspecific abnormal finding of lung field Status: Chronic (3) Hypokalemia ICD Code: E87.6 - Hypokalemia Procedures . Brief History - From Admission Written by Ana Maria Shepherd, acting as scribe for Dr. Cummings on 06/05/17 at 12:43. Ms. Boo is a pleasant 62-year-old female patient with a known medical history of asthma, tobacco use history and chronic lung nodules who presented to the ED with worsening shortness of breath and cough. Patient states that she has recently traveled to [place] and arrived back here on Saturday and developed a productive cough with associated worsening shortness of breath on Saturday night. Patient states that she has a productive cough with brown/red coloration. She states that she also has chest pain associated with her cough. The chest pain is located in her right-sided chest that radiates to her back, rated a 4/10 on pain scale, worse with coughing and activity, constant and sharp in nature, denies any relieving factors. Denies any significant cardiac history. Patient does suffer from chronic back pain and has been taking PO Morphine with no relief. Denies any sick contacts. Denies frequent illness or any past fungal exposure. Denies any recent fever, chills, abdominal pain, nausea, vomiting or diarrhea. PCP is Dr. Amin. Client Services Assistant is Dr. Presley. CBC/BMP: 06/06/17 0430 06/08/17 0900 Significant Findings Laboratory Tests Test 06/05/17 09:43 06/05/17 09:44 06/06/17 04:30 06/07/17 10:20 Mean Corpuscular Hemoglobin Concent 31.9 % (32.0-36.0) Neutrophils (%) (Auto) 81.0 % (16.0-70.0) 78.2 % (16.0-70.0) Neutrophils # (Auto) 8.5 TH/MM3 (1.8-7.7) D-Dimer Quantitative (PE/DVT) 2.90 MG/L FEU (0.00-0.50) Albumin 3.1 GM/DL (3.4-5.0) Potassium Level 3.3 MEQ/L (3.5-5.1) 3.2 MEQ/L (3.5-5.1) 3.1 MEQ/L (3.5-5.1) Troponin I LESS THAN 0.02 NG/ML B-Type Natriuretic Peptide 179 PG/ML (0-100) Red Blood Count 3.97 MIL/MM3 (4.00-5.30) Hemoglobin 11.2 GM/DL (11.6-15.3) Hematocrit 34.1 % (35.0-46.0) Creatinine 0.37 MG/DL (0.50-1.00) 0.42 MG/DL (0.50-1.00) Blood Urea Nitrogen 6 MG/DL (7-18) Random Glucose 129 MG/DL (74-106) Test 06/08/17 09:00 Creatinine 0.43 MG/DL (0.50-1.00) Random Glucose 133 MG/DL (74-106) Potassium Level 3.1 MEQ/L (3.5-5.1) Imaging Last Impressions CT Angiography 06/05/17 1027 Signed Impressions: Service Date/Time: Monday, June 05, 2017 11:05 - CONCLUSION: 1. No CT evidence for pulmonary artery embolism. 2. Extensive nodular interstitial opacities with scattered sub-5 mm pulmonary nodules throughout the right upper , lower and left lower lobes. 3. Extensive central dense airspace consolidation in the right upper and lower lobes with air bronchograms. No evidence for definite focal central lung or endobronchial lung mass. 4. Favor multilobar pneumonia or atypical infection although differential considerations include sarcoidosis, inflammatory etiologies and malignancy. Maged Murphy MD ADDENDUM: The following was omitted from the report. The thyroid gland is heterogeneous and contains multiple nodules with a dominant 2 cm exophytic nodule in the left lobe. Further evaluation may be performed with outpatient ultrasound as indicated. Maged Murphy MD Chest X-Ray 06/05/17 0945 Signed Impressions: Service Date/Time: Monday, June 05, 2017 10:03 - CONCLUSION: Patchy consolidative changes right upper lobe with volume loss. Underlying mass cannot be excluded. CT chest recommended. Abhinav Greenberg MD PE at Discharge GENERAL: This is a well-nourished, well-developed female patient, sitting up in bed comfortably on RA SKIN: No rashes. Left forearm bruising and swelling patient states she bumped it a week ago. Diaphoretic and warm HEENT: Atraumatic. Normocephalic. Pupils equal round and reactive. Extraocular motions intact. No scleral icterus. No injection or drainage. Nose without bleeding. Uvula midline. Airway patent. NECK: Trachea midline. No JVD or lymphadenopathy. Supple. CARDIOVASCULAR: Regular rate and rhythm without murmurs, gallops, or rubs. RESPIRATORY: Crackles noted throughout all lung quiroz, elena right posterior upper and lower lobes. Breath sounds equal bilaterally. GASTROINTESTINAL: Abdomen soft, non-tender, nondistended. No guarding. MUSCULOSKELETAL: Extremities without clubbing, cyanosis, or edema. No joint tenderness, effusion, or edema noted. NEUROLOGICAL: Awake and alert. Cranial nerves II through XII intact. Motor and sensory grossly within normal limits. Five out of 5 muscle strength in all muscle groups. Normal speech. Pt update on day of discharge Follow up PNA. Patient seen and examined in room, lying in bed comfortably. States she is feeling much better. Denies any continued dyspnea. Eating well. Has ambulated. Eager to get home. VSS. Afebrile. Hypokalemia this am. Will replace. Hospital Course Patient admitted for IV antibiotic administration. D-dimer upon presentation was 2.9. Chest CTA reviewed which was negative for PE. Extensive nodular interstitial opacities scattered. There was also airspace consolidation in the right upper and lower lobes with air bronchograms. These are chronic and are being followed by Dr. Presley in the outpatient setting. Attempted to obtain records of last CT for comparison but have not been received reports back from office. Encouraged to have patient follow up with PCP and have him obtain records for comparison. Duonebs were scheduled and PRN. Blood cultures were drawn with no growth. Fungal sputum smear showing yeast, given Diflucan x 3 doses. Awaiting culture, encouraged patient to follow up in the outpatient setting. Oral thrush, given nystatin swish and swallow. Improved. Influenza negative. CBC unremarkable, WBC WNL. Was given supplemental O2. Now on RA. Was given Rocephin and Azithromycin IV in ED. Continued Azithromycin IV and additionally started on Levaquin IV. Hypokalemia upon presentation, supplementation given. Pt Condition on Discharge: Good Discharge Disposition: Discharge Home Discharge Time: <= 30 minutes Discharge Instructions DIET: Follow Instructions for: As Tolerated, No Restrictions Speech Therapy-Diet Recommends: Regular Activities you can perform: Regular-No Restrictions Follow up Referrals: PCP Follow-up - 1 Week New Medications: Levofloxacin (Levaquin) 750 Mg Tablet 750 MG PO DAILY for PNA for 3 Days, #3 TAB Continued Medications: Gabapentin (Gabapentin) 100 Mg Cap 100 MG PO BID, #60 CAP 0 Refills Meloxicam (Meloxicam) 7.5 Mg Tab 7.5 MG PO BID for Arthritis Pain, TAB 0 Refills Montelukast (Singulair) 10 Mg Tab 10 MG PO HS, #30 TAB 0 Refills Morphine ER (Morphine ER) 15 Mg Tab 15 MG PO Q8H for Pain Management, TAB 0 Refills Multiple Vitamin (Multiple Vitamin) 1 Tab 1 TAB PO DAILY for Nutritional Supplement, TAB 0 Refills Pantoprazole (Protonix) 40 Mg Tab 40 MG PO DAILY for Reflux, #30 TAB 0 Refills Spironolactone (Spironolactone) 25 Mg Tab 25 MG PO DAILY, #30 TAB 0 Refills Sucralfate (Sucralfate) 1 Gram Tab 1 GM PO TID for Duodenal ulcer, #90 TAB 0 Refills on empty stomach Tamsulosin (Tamsulosin) 0.4 Mg Cap 0.8 MG PO HS for Manage Prostate Problems, #60 CAP 0 Refills Additional Information Discharge patient to home Condition on discharge: Improved Regular Diet as tolerated Ad Sarah activity Rx written: see notes Follow-up with primary care physician Ana Maria Shepherd Jun 08, 2017 09:36
--- NOTE | 2017-06-08 09:36 | HHI.DCPOC ---
Discharge Care Plan Diagnosis: (1) Hypokalemia (2) Pneumonia (3) Lung nodule, multiple Goals to Promote Your Health * To prevent worsening of your condition and complications * To maintain your health at the optimal level Directions to Meet Your Goals Take your medications as prescribed Follow your dietary instruction Follow activity as directed Keep your appointments as scheduled Take your immunizations and boosters as scheduled If your symptoms worsen call your PCP, if no PCP go to Urgent Care Center or Emergency Room Smoking is Dangerous to Your Health. Avoid second hand smoke Call the 24-hour hour crisis hotline for domestic abuse at Discharge patient to home Condition on discharge: Improved Regular Diet as tolerated Ad Sarah activity Rx written: See above. Follow-up with primary care physician Ana Maria Shepherd Jun 08, 2017 09:36
[2017-06-08] MEDS ORDERED: LEVA750T9 PO (09:38)
[2017-06-08] MEDS ORDERED: MAGNESIUM OXIDE 400 MG TAB PO ONE (09:45)
[2017-06-08] MEDS ORDERED: POTASSIUM CHLORIDE 10 MEQ CONTROLLED RELEASE TAB PO ONE (09:45)
== END 2017-06-08 10:08 | disposition home or self-care (01) | DRG 194 ==
LOC: PHED 09:08 → PHEDA 12:20 → PH3B 13:30
PROVIDERS: ADMIT Hospitalist; ATTEND Hospitalist
DX: J18.9 Pneumonia, unspecified organism (principal); B37.0 Candidal stomatitis; E87.6 Hypokalemia; J45.909 Unspecified asthma, uncomplicated; R91.8 Other nonspecific abnormal finding of lung field; G43.909 Migraine, unspecified, not intractable, without status migrainosus; M19.90 Unspecified osteoarthritis, unspecified site; Z87.891 Personal history of nicotine dependence; Z88.0 Allergy status to penicillin
CPT/HCPCS: 71010; 71275; 80048; 80053; 83735; 83880; 84484; 85025; 85379; 87040; 87102; 87206; 87804; 93005; 94150; 94640; 94664; 96365; 96375; J0456; J0696; J1450; J1644; J1885; J1956; J2405; J7050; Q9967

== ENCOUNTER 2017-07-20 11:35 | Inpatient (IN) | payer BC ==
[2017-07-20] VITALS (8 sets, daily range): BP systolic 87–101; BP diastolic 50–65; PULSE 89–120; RESP 16–22; TEMP 98–100; O2SAT 66–98
[~2017-07-20] VITALS: Ht 165.1 cm; Wt 85.8 kg
[~2017-07-20 11:35] MED LIST changes: -CALC600T10 PO; -HYDR-3533 PO; -KRIL1CAP9 PO; +LEVA750T9 PO; -MELO7.5 PO; +MELO7.5T27 PO; +MORP1TAB24 PO; -MSIR15 PO; -MULT1TAB46 PO; +MULTTAB67 PO; -NORC10TA2 PO; -PROM25SU8 PO
--- NOTE | 2017-07-20 12:01 | PD ---
HPI Chief Complaint: Cold / Flu Symptoms Time Seen by Provider: 12:00 Travel History International Travel<30 days: No Contact w/Intl Traveler<30days: No Traveled to known affect area: No History of Present Illness HPI 62-year-old female came to the emergency room with history of cough, fever, body ache and vomiting for past 3 days. Patient says that she has never felt good since her last hospitalization which was in June 09, 2017 for pneumonia. Patient was admitted for 2 days at that time. She has been coughing and feeling under the weather since then but these new symptoms as mentioned above started 3 days ago. Her was diagnosed with influenza about a month prior to her getting sick. When he had his illness patient was given prophylactic Tamiflu. She took 2 full strength aspirin at 9 AM today. She had a temperature of 100 with tachycardia and heart rate in 120s. No history of chest pain. She knows that she has a lung nodule that her resolution analyst is following. Patient does not remember which lung. Her oxygen saturation was 90% on room air. Patient does not require oxygen at home. PFSH Past Medical History Narrative Medical List of her past medical, surgical, social and family history is reviewed from the nursing note. Hx Anticoagulant Therapy: No Asthma: Yes Anxiety: Yes Cancer: No Cardiovascular Problems: No Chemotherapy: No Cerebrovascular Accident: No Diabetes: No Diminished Hearing: No Endocrine: No Genitourinary: Yes (BLADDER SPASM) Hepatitis: No Hiatal Hernia: No Immune Disorder: No Insomnia: Yes Musculoskeletal: Yes (ARTHRITIS) Neurologic: No Psychiatric: No Reproductive: No Respiratory: Yes (asthma) Migraines: Yes Thyroid Disease: No Menopausal: Yes Tubal Ligation: Yes Past Surgical History AICD: No Body Medical Devices: RIGHT ANKLE PINS Hysterectomy: No Joint Replacement: Yes (LEFT HIP) Pacemaker: No Social History Alcohol Use: No Tobacco Use: No Substance Use: No Allergies-Medications (Allergen,Severity, Reaction): Coded Allergies: penicillin G (Unverified Allergy, Severe, 06/05/17) Comments List of her allergies reviewed from the nursing note. Reported Meds & Prescriptions Reported Meds & Active Scripts Active Reported Sucralfate 1 Gram Tab 1 Gm PO TID on empty stomach Meloxicam 7.5 Mg Tab 7.5 Mg PO BID Singulair (Montelukast Sodium) 10 Mg Tab 10 Mg PO HS Tamsulosin (Tamsulosin HCl) 0.4 Mg Cap 0.8 Mg PO HS Multiple Vitamin 1 Tab 1 Tab PO DAILY Protonix (Pantoprazole Sodium) 40 Mg Tab 40 Mg PO DAILY Spironolactone 25 Mg Tab 25 Mg PO DAILY Morphine ER (Morphine Sulfate) 15 Mg Tab 15 Mg PO Q8H Gabapentin 100 Mg Cap 100 Mg PO BID Narrative Medication List of her home medications reviewed from the nursing note. Review of Systems Except as stated in HPI: all other systems reviewed are Neg General / Constitutional: Positive: Fever Respiratory: Positive: Cough, Shortness of Breath Gastrointestinal: Positive: Nausea, Vomiting Physical Exam Narrative GENERAL: Awake, alert, moderate distress SKIN: Focused skin assessment warm/dry. HEAD: Atraumatic. Normocephalic. EYES: Pupils equal and round. No scleral icterus. No injection or drainage. ENT: No nasal bleeding or discharge. Mucous membranes pink and moist. NECK: Trachea midline. No JVD. CARDIOVASCULAR: Regular rate and rhythm. No murmur appreciated. RESPIRATORY: No accessory muscle use. Diminished air entry with some coarse crackles on the right side GASTROINTESTINAL: Abdomen soft, non-tender, nondistended. Hepatic and splenic margins not palpable. MUSCULOSKELETAL: No obvious deformities. No clubbing. No cyanosis. No edema. NEUROLOGICAL: Awake and alert. No obvious cranial nerve deficits. Motor grossly within normal limits. Normal speech. PSYCHIATRIC: Appropriate mood and affect; insight and judgment normal. Data Data Last Documented VS Vital Signs Date Time Temp Pulse Resp B/P (MAP) Pulse Ox O2 Delivery O2 Flow Rate FiO2 07/20/17 13:22 98.0 07/20/17 13:20 96 18 96 Nasal Cannula 2.00 Orders Orders Sepsis Workup Initiated (07/20/17 ) Complete Blood Count With Diff (07/20/17 12:07) Comprehensive Metabolic Panel (07/20/17 12:07) Lactic Acid Sepsis Protocol (07/20/17 12:07) Urinalysis - C+S If Indicated (07/20/17 12:07) Influenzae A/B Antigen (07/20/17 12:07) Blood Culture (07/20/17 12:07) Chest, Single Ap (07/20/17 12:07) Blood Glucose (07/20/17 12:07) Ecg Monitoring (07/20/17 12:07) Iv Access Insert/Monitor (07/20/17 12:07) Oximetry (07/20/17 12:07) Oxygen Administration (07/20/17 12:07) Sodium Chlor 0.9% 1000 Ml Inj (Ns 1000 M (07/20/17 12:15) Albuterol-Ipratropium Neb (Duoneb Neb) (07/20/17 13:00) Potassium Chloride (Kcl) (07/20/17 13:15) Sodium Chlor 0.9% 1000 Ml Inj (Ns 1000 M (07/20/17 13:15) Aztreonam Inj (Azactam Inj) (07/20/17 13:30) Vancomycin Inj (Vancomycin Inj) (07/20/17 13:30) Sodium Chlor 0.9% 1000 Ml Inj (Ns 1000 M (07/20/17 13:30) Admit Order (Ed Use Only) (07/20/17 13:39) Labs Laboratory Tests Test 07/20/17 12:20 07/20/17 12:25 White Blood Count 5.7 TH/MM3 Red Blood Count 5.08 MIL/MM3 Hemoglobin 14.2 GM/DL Hematocrit 43.9 % Mean Corpuscular Volume 86.4 FL Mean Corpuscular Hemoglobin 27.9 PG Mean Corpuscular Hemoglobin Concent 32.3 % Red Cell Distribution Width 13.3 % Platelet Count 224 TH/MM3 Mean Platelet Volume 8.4 FL Neutrophils (%) (Auto) 80.5 % Lymphocytes (%) (Auto) 12.7 % Monocytes (%) (Auto) 6.2 % Eosinophils (%) (Auto) 0.3 % Basophils (%) (Auto) 0.3 % Neutrophils # (Auto) 4.6 TH/MM3 Lymphocytes # (Auto) 0.7 TH/MM3 Monocytes # (Auto) 0.4 TH/MM3 Eosinophils # (Auto) 0.0 TH/MM3 Basophils # (Auto) 0.0 TH/MM3 CBC Comment DIFF FINAL Differential Comment Blood Urea Nitrogen 20 MG/DL Creatinine 0.78 MG/DL Random Glucose 121 MG/DL Total Protein 7.4 GM/DL Albumin 4.1 GM/DL Calcium Level 8.8 MG/DL Alkaline Phosphatase 96 U/L Aspartate Amino Transf (AST/SGOT) 26 U/L Alanine Aminotransferase (ALT/SGPT) 17 U/L Total Bilirubin 0.5 MG/DL Sodium Level 137 MEQ/L Potassium Level 3.2 MEQ/L Chloride Level 98 MEQ/L Carbon Dioxide Level 29.6 MEQ/L Anion Gap 9 MEQ/L Estimat Glomerular Filtration Rate 75 ML/MIN Lactic Acid Level 2.1 mmol/L MDM Medical Decision Making Medical Screen Exam Complete: Yes Emergency Medical Condition: Yes Medical Record Reviewed: Yes Differential Diagnosis Pneumonia, pleural effusion, influenza Narrative Course 1:02 PM chest x-ray shows diffuse haziness of her right lung which as per the radiologist is unchanged from her last CT pulmonary angiogram. As per the radiologist and no new findings on the chest x-ray. CBC is within normal limit. Awaiting for the chemistry and lactic acid. Awaiting for the influenza test. 1:21 PM chemistry came back and lactic acid is elevated to some extent. I looked at her recent past admission were the CT that was done to rule out PE did not show PE but extensive nodules and consolidative changes in her right upper lung and left lower lung. A bronchoscopy was recommended but one was not done on the patient was hospitalized. She does have a resolution analyst that she follows up with but are not sure if a bronchoscopy has been done at all. She has been hypoxic and her lung. She has not improved. And with this elevated lactic acid even though it's mild I would prefer to keep her in the hospital. Awaiting for the hospitalist call back. I will start her on Zosyn and vancomycin. Critical Care Narrative Aggregate critical care time was 30 minutes. Time to perform other separately billable procedures was not included in the critical care time. My time did not include minutes spent treating any other patients simultaneously or on activities that did not directly contribute to the patient's treatment. The services I provided to this patient were to treat and/or prevent clinically significant deterioration that could result in: Respiratory distress, hypoxia, sepsis, pneumonia I provided critical care services requiring my management, as noted below: Chart data review, documentation time, medication orders and management, vital sign assessments/reviewing monitor data, ordering and reviewing lab tests, ordering and interpreting/reviewing x-rays and diagnostic studies, care of the patient and discussion of the patient with the admitting physicians. Procedures EKG Prior to Arrival: No Diagnosis Primary Impression: Hypoxia Additional Impressions: Shortness of breath Fever Qualified Codes: R50.9 - Fever, unspecified Sepsis Qualified Codes: A41.9 - Sepsis, unspecified organism Pneumonia Qualified Codes: J18.9 - Pneumonia, unspecified organism Admitting Information Admitting Physician Requests: Admit Scripts Budesonide-Formoterol Inh (Symbicort Inh) 80-4.5 Mcg/Act Aero 1 PUFF INH Q12HR for Asthma Management, #1 INHALER 0 Refills Prov: Karsten Canales MD 07/22/17 Prednisone (21) 10 mg tab Dose Pack (Prednisone (21) 10 mg tab Dose Pack) 10 Mg Pack 10 MG PO DIRECTED for Inflammation, #1 DSPK 0 Refills Prov: Karsten Canales MD 07/22/17 Doxycycline Hyclate (Doxycycline Hyclate) 100 Mg Cap 100 MG PO BID for Infection, #20 CAP 0 Refills Prov: Karsten Canales MD 07/22/17 Levofloxacin (Levaquin) 750 Mg Tablet 750 MG PO DAILY for pneumonia for 3 Days, #10 TAB Prov: Karsten Canales MD 07/22/17 Lorena Garrison MD Jul 20, 2017 12:01
[2017-07-20] MEDS ORDERED: SODIUM CHLOR 0.9% 1000 ML INJ 1,000 ML IV ONE ×4 (12:15→17:30)
--- NOTE | 2017-07-20 12:48 | RADRPT ---
EXAM DATE/TIME: 07/20/2017 12:26 [facility] COMPARISON: CT PULMONARY ANGIOGRAM, June 05, 2017, 11:05. CHEST SINGLE AP, June 05, 2017, 10:03. INDICATIONS : Fever, Right side chest pain, congestion MEDICAL HISTORY : Asthma SURGICAL HISTORY : None. ENCOUNTER: Initial ACUITY: 3 days PAIN SCORE: 6/10 LOCATION: Right chest FINDINGS: Single AP upright portable view of the chest demonstrate stable appearance of hazy diffuse airspace o pacities involving the majority of the right hemithorax, unchanged in pattern as compared to the prio r exams. The left hemithorax is largely clear. The heart size is normal. The pulmonary vasculature ap pears normal in caliber. Osseous structures demonstrate extensive degenerative changes. CONCLUSION: Stable exam. Camille Zapata MD on July 20, 2017 at 12:44 Board Certified Radiologist. This report was verified electronically.
[2017-07-20 12:50] LABS: AUTOMATED NEUTROPHIL # 4.6 TH/MM3 (1.8-7.7); BASOPHIL % 0.3 % (0.0-2.0); EOSINOPHIL % 0.3 % (0.0-4.0); HEMATOCRIT 43.9 % (35.0-46.0); HEMOGLOBIN 14.2 GM/DL (11.6-15.3); LYMPH % 12.7 % (9.0-44.0); LYMPHOCYTE # 0.7 TH/MM3 (1.0-4.8); MEAN CELL VOLUME 86.4 FL (80.0-100.0); MEAN CORPUSCULAR HEMOGLOBIN 27.9 PG (27.0-34.0); MEAN CORPUSCULAR HGB CONC 32.3 % (32.0-36.0); MEAN PLATELET VOLUME 8.4 FL (7.0-11.0); MONO % 6.2 % (0.0-8.0); MONOCYTE # 0.4 TH/MM3 (0-0.9); NEUT % 80.5 % (16.0-70.0); PLATELET COUNT 224 TH/MM3 (150-450); RED BLOOD COUNT 5.08 MIL/MM3 (4.00-5.30); RED CELL DISTRIBUTION WIDTH 13.3 % (11.6-17.2); WHITE BLOOD COUNT 5.7 TH/MM3 (4.0-11.0)
[2017-07-20 12:59] LABS: CHLORIDE 98 MEQ/L (98-107); SODIUM (NA) 137 MEQ/L (136-145)
[2017-07-20] MEDS ORDERED: RESP: ALBUTEROL 2.5 MG/IPRATROPIUM 0.5 MG NEB (SCH) NEB ONE (13:00)
[2017-07-20 13:02] LABS: CALCIUM 8.8 MG/DL (8.5-10.1)
[2017-07-20 13:03] LABS: ALBUMIN 4.1 GM/DL (3.4-5.0); BICARBONATE 29.6 MEQ/L (21.0-32.0); BLOOD UREA NITROGEN 20 MG/DL (7-18); GLUCOSE,RANDOM 121 MG/DL (74-106)
[2017-07-20 13:06] LABS: ALT (GPT) 17 U/L (10-53); AST (GOT) 26 U/L (15-37); CREATININE 0.78 MG/DL (0.50-1.00); GLOMERULAR FILTRATION RATE 75 ML/MIN (>89)
[2017-07-20 13:07] LABS: TOTAL BILIRUBIN ADULT 0.5 MG/DL (0.2-1.0); TOTAL PROTEIN 7.4 GM/DL (6.4-8.2)
[2017-07-20 13:08] LABS: LACTIC ACID SEPSIS PROTOCOL 2.1 mmol/L (0.4-2.0)
[2017-07-20 13:09] LABS: ALKALINE PHOSPHATASE 96 U/L (45-117)
[2017-07-20] MEDS ORDERED: POTASSIUM CHLORIDE 20 MEQ CONTROLLED RELEASE TAB PO ONE (13:15)
[2017-07-20] MEDS ORDERED: AZTREONAM INJ 2,000 MG in SODIUM CHLORIDE 0.9% INJ 100 ML IV ONE (13:30)
[2017-07-20] MEDS ORDERED: VANCOMYCIN 1 GM/200 ML INJ 200 ML IV ONE (13:30)
[2017-07-20 14:00] LABS: BILIRUBIN, URINE NEG (NEG); BLOOD, URINE SMALL (NEG); GLUCOSE,URINE NEG (NEG); KETONE, URINE NEG (NEG); NITRITE,URINE NEG (NEG); PH, URINE 5.5 (5.0-8.5); URINE LEUKOCYTE ESTERASE TRACE (NEG)
[2017-07-20 14:02] LABS: URINE COLOR YELLOW (YELLW/STRAW)
[2017-07-20 14:05] LABS: AMORPHOUS SEDIMENT, URINE FEW; RBC, URINE 0-3 /hpf (0-3); SQUAMOUS EPITHELIAL CELL URINE 0-5 /hpf (0-5); TRANSITIONAL EPI CELLS, URINE 0-5 /hpf; WBC, URINE 0-2 /hpf (0-5)
[2017-07-20] MEDS ORDERED: Vancomycin Consult Pharmacy 1 EA OTHER SCH ×2 (17:15→18:00)
--- NOTE | 2017-07-20 17:26 | HHI.HP ---
[facility] Slava Toledo MD Admission Diagnosis hypoxia, respiratory distress, sepsis, pneumonia Diagnoses: Chief Complaint: Flulike symptoms Travel History International Travel<30 Days: No Contact w/Intl Traveler <30 Da: No Traveled to Known Affected Are: No History of Present Illness 62-year-old white female being admitted for possible pneumonia. Patient was in her usual state of health a few days ago when she began developing flu-like symptoms including nausea, diffuse body aches, and fevers and chills. Patient states that her chronic dyspnea is unchanged since her hospitalization last May as well as her chronic cough. Patient states that she has been seen Dr. Colunga, her contact center specialist, for her unspecified lung disease for the last month or so. She says that he was reviewing her CT scans and thinking about a bronchoscopy but she has not heard from him since early in June. Patient states that she has had a new lowered baseline of chronic dyspnea since her hospitalization last May is getting quite frustrated about it. These lingering symptoms as well as heard new onset acute symptoms from a few days ago prompted her to come to the emergency department. The emergency room physician spoke to me and strongly felt that the patient needed a more expeditious bronchoscopy performed. Review of Systems Except as stated in HPI: all other systems reviewed are Neg Past Family Social History Past Medical History Chronic unspecified lung disease Hypercholesterolemia arthritis Allergies: Coded Allergies: penicillin G (Unverified Allergy, Severe, 06/05/17) Family History Mother with emphysema Social History Patient stop smoking 12 years ago Physical Exam Vital Signs Vital Signs Date Time Temp Pulse Resp B/P (MAP) Pulse Ox O2 Delivery O2 Flow Rate FiO2 07/20/17 15:10 07/20/17 14:50 97 18 94/50 (65) 96 Nasal Cannula 2.00 07/20/17 13:22 98.0 07/20/17 13:20 96 18 100/58 (72) 96 Nasal Cannula 2.00 07/20/17 12:36 106 22 87/56 (66) 97 Nasal Cannula 2.00 1/27/18 11:50 93 07/20/17 11:41 100.0 120 16 101/65 (44) 92 Physical Exam VS: afebrile GENERAL: Middle-aged white female, sitting up in bed, no acute distress, eating her meals SKIN: Warm and dry. EYES: No scleral icterus. No injection or drainage. ENT: No nasal bleeding or discharge. Mucous membranes pink and moist. CARDIOVASCULAR: Regular rate and rhythm. no murmurs RESPIRATORY: No accessory muscle use. Right-sided crackles, clear left side. Unlabored breathing GASTROINTESTINAL: Abdomen soft, non-tender, nondistended. Extremities: No clubbing, cyanosis, or edema. No obvious deformities. MUSCULOSKELETAL: adequate muscle bulk and tone for age and habitus NEUROLOGICAL: Awake and alert. No obvious cranial nerve deficits. No facial droop nor slurred speech noted. PSYCHIATRIC: Appropriate mood and affect; insight and judgment normal. Laboratory Laboratory Tests Test 07/20/17 12:20 07/20/17 12:25 07/20/17 13:48 07/20/17 15:27 White Blood Count 5.7 Red Blood Count 5.08 Hemoglobin 14.2 Hematocrit 43.9 Mean Corpuscular Volume 86.4 Mean Corpuscular Hemoglobin 27.9 Mean Corpuscular Hemoglobin Concent 32.3 Red Cell Distribution Width 13.3 Platelet Count 224 Mean Platelet Volume 8.4 Neutrophils (%) (Auto) 80.5 Lymphocytes (%) (Auto) 12.7 Monocytes (%) (Auto) 6.2 Eosinophils (%) (Auto) 0.3 Basophils (%) (Auto) 0.3 Neutrophils # (Auto) 4.6 Lymphocytes # (Auto) 0.7 Monocytes # (Auto) 0.4 Eosinophils # (Auto) 0.0 Basophils # (Auto) 0.0 CBC Comment DIFF FINAL Differential Comment Blood Urea Nitrogen 20 Creatinine 0.78 Random Glucose 121 Total Protein 7.4 Albumin 4.1 Calcium Level 8.8 Alkaline Phosphatase 96 Aspartate Amino Transf (AST/SGOT) 26 Alanine Aminotransferase (ALT/SGPT) 17 Total Bilirubin 0.5 Sodium Level 137 Potassium Level 3.2 Chloride Level 98 Carbon Dioxide Level 29.6 Anion Gap 9 Estimat Glomerular Filtration Rate 75 Lactic Acid Level 2.1 1.9 Urine Collection Type CATH Urine Color YELLOW Urine Turbidity SLIGHT Urine pH 5.5 Urine Specific [place] 1.019 Urine Protein NEG Urine Glucose (UA) NEG Urine Ketones NEG Urine Occult Blood SMALL Urine Nitrite NEG Urine Bilirubin NEG Urine Leukocyte Esterase TRACE Urine RBC 0-3 Urine WBC 0-2 Urine Squamous Epithelial Cells 0-5 Urine Transitional Epithelial Cells 0-5 Urine Amorphous Sediment FEW Microscopic Urinalysis Comment CATH-CULT NOT IND Urine Collection Time 1348 Date/Time Source Procedure Growth Status 07/20/17 12:25 Blood Peripheral Aerobic Blood Culture Pending Received 07/20/17 12:25 Blood Peripheral Anaerobic Blood Culture Pending Received 07/20/17 12:32 Nasal Aspirate Influenza Types A,B Antigen (GWENDOLYN) - Final NEGATIVE FOR FLU A AND B ANTIGEN.... Complete Result Diagram: 07/20/17 1220 07/20/17 1220 Imaging Last Impressions Chest X-Ray 07/20/17 1207 Signed Impressions: Service Date/Time: Saturday, July 20, 2017 12:26 - CONCLUSION: Stable exam. MD Goran Soares VTE Risk Assessment Goran VTE Risk Assessment: Mod/High Risk (score >= 2) Caprini Risk Assessment Model Point Value = 1 Point Value = 2 Point Value = 3 Point Value = 5 Age 41-60 Minor surgery BMI > 25 kg/m2 Swollen legs Varicose veins or History of unexplained or recurrent spontaneous Oral contraceptives or hormone replacement Sepsis (< 1 month) Serious lung disease, including pneumonia (< 1 month) Abnormal pulmonary function Acute myocardial infarction Congestive heart failure (< 1 month) History of inflammatory bowel disease Medical patient at bed rest Age 61-74 Arthroscopic surgery Major open surgery (> 45 min) Laparoscopic surgery (> 45 min) Malignancy Confined to bed (> 72 hours) Immobilizing plaster cast Central venous access Age >= 75 History of VTE Family history of VTE Factor V Leiden Prothrombin [id number] Lupus anticoagulant Anticardiolipin antibodies Elevated serum homocysteine Heparin-induced thrombocytopenia Other congenital or acquired thrombophilia Stroke (< 1 month) Elective arthroplasty Hip, pelvis, or leg fracture Acute spinal cord injury (< 1 month) Prophylaxis Regimen Total Risk Factor Score Risk Level Prophylaxis Regimen 0-1 Low Early ambulation 2 Moderate Order ONE of the following: *Sequential Compression Device (SCD) *Heparin 5000 units SQ BID 3-4 Higher Order ONE of the following medications: *Heparin 5000 units SQ TID *Enoxaparin/Lovenox 40 mg SQ daily (WT < 150 kg, CrCl > 30 mL/min) *Enoxaparin/Lovenox 30 mg SQ daily (WT < 150 kg, CrCl > 10-29 mL/min) *Enoxaparin/Lovenox 30 mg SQ BID (WT < 150 kg, CrCl > 30 mL/min) AND/OR *Sequential Compression Device (SCD) 5 or more Highest Order ONE of the following medications: *Heparin 5000 units SQ TID (Preferred with Epidurals) *Enoxaparin/Lovenox 40 mg SQ daily (WT < 150 kg, CrCl > 30 mL/min) *Enoxaparin/Lovenox 30 mg SQ daily (WT < 150 kg, CrCl > 10-29 mL/min) *Enoxaparin/Lovenox 30 mg SQ BID (WT < 150 kg, CrCl > 30 mL/min) AND *Sequential Compression Device (SCD) Assessment and Plan Assessment and Plan 62-year-old white female being admitted for possible pneumonia superimposed upon inflammatory lung disease Lactic acidosis w/ mild transient hypotension - most likely from dehydration from acute illness, aggressive hydration, telemetry Possible bacterial pneumonia - Flu negative. Blood cultures obtained, antibiotics started. - I independently reviewed the chest x-ray which appears to be unchanged from before, does show diffuse infiltrates on the right lung field, mild infiltrates in the left base - Saturating well on room air at 95%. Was given aztreonam and vancomycin in the emergency room. I will continue the vancomycin, and swap over to Levaquin. - Was worked up for CT angiogram with negative results up on the last admission. - Duonebs w/ Mucomyst and sputum culture. Suspected inflammatory lung disease - Consulting pulmonology to see if they will consider a bronchoscopy given that this is part of the reason why the patient came to the hospital or at least speak to her contact center specialist. arthritis - continue home meds Lovenox In total, the time spent with the patient was over 35 minute of which more than 50% of patient care was spent discussing his or her care and counseling the patient and corresponding caregivers. Physician Certification 2 Midnight Certification Type: Admission for Inpatient Services Order for Inpatient Services The services are ordered in accordance with Medicare regulations or non- Medicare payer requirements, as applicable. In the case of services not specified as inpatient-only, they are appropriately provided as inpatient services in accordance with the 2-midnight benchmark. Estimated LOS (days): 2 2 days is the estimated time the patient will need to remain in the hospital, assuming treatment plan goals are met and no additional complications. Post-Hospital Plan: Home Karsten Canales MD Jul 20, 2017 17:26
[2017-07-20] MEDS ORDERED: LEVOFLOXACIN 750 MG PREMIX INJ 150 ML IV SCH (18:00)
[2017-07-20] MEDS: ENOXAPARIN SODIUM 30 MG/0.3 ML SYRINGE SQ SCH (18:30)
[2017-07-20] MEDS: SUCRALFATE 1 GM TAB PO SCH (18:30)
[2017-07-20] MEDS: RESP: ALBUTEROL 2.5 MG/IPRATROPIUM 0.5 MG NEB (SCH) NEB (19:41)
[2017-07-20] MEDS: RESP: ACETYLCYSTEINE 10% 10 ML NEB NEB SCH (19:41)
--- NOTE | 2017-07-20 21:16 | RADRPT ---
EXAM DATE/TIME: 07/20/2017 20:14 [facility] COMPARISON: CHEST SINGLE AP, July 20, 2017, 12:26. CT PULMONARY ANGIOGRAM, June 05, 2017, 11:05. INDICATIONS : Fever, chills infiltrate, shortness of breath RADIATION DOSE: 7.05 CTDIvol (mGy) MEDICAL HISTORY : Gastroesophageal reflux disease. asthma SURGICAL HISTORY : None. ENCOUNTER: Initial ACUITY: 3 days PAIN SCALE: 7/10 LOCATION: chest TECHNIQUE: Volumetric scanning of the chest was performed. Using automated exposure control and adjustment of t he mA and/or kV according to patient size, radiation dose was kept as low as reasonably achievable to obtain optimal diagnostic quality images. DICOM format image data is available electronically for r eview and comparison. Follow-up recommendations for detected pulmonary nodules are based at a minimum on nodule size and pa tient risk factors according to Fleischner Society Guidelines. FINDINGS: Since the prior pulmonary angiogram, there is considerably improved but persistent versus recurrent p atchy pneumonia in the right lung. Upper and lower lobes are predominately involved but there is mild involvement of the middle lobe as well. Previously seen patchy infiltrate of the left lung has resolved. The left lung is now clear. No pleural effusion or pneumothorax on either side. Heart size stable, normal. Coronary artery calcification noted proximal left anterior descending, ser ies 2 image 30. No lymphadenopathy. CONCLUSION: Patchy right lung pneumonia. Left lung clear. Please see above. Riley Lott MD on July 20, 2017 at 21:11 Board Certified Radiologist. This report was verified electronically.
[2017-07-20] MEDS: MELOXICAM 7.5 MG TAB PO SCH (22:21)
[2017-07-20] MEDS: MONTELUKAST SODIUM 10 MG TAB PO SCH (22:22)
[2017-07-20] MEDS: SODIUM CHLOR 0.9% 1000 ML INJ 1,000 ML IV SCH (22:22)
[2017-07-20] MEDS: MORPHINE SULFATE 15 MG CONTROLLED RELEASE TAB PO SCH (22:22)
[2017-07-20] MEDS: GABAPENTIN 100 MG CAP PO SCH (22:22)
[2017-07-21] VITALS (7 sets, daily range): BP systolic 102–161; BP diastolic 62–85; PULSE 76–95; RESP 16–20; TEMP 97–98.7; O2SAT 94–100
[2017-07-21] MEDS: SODIUM CHLOR 0.9% 1000 ML INJ 1,000 ML IV SCH ×2 (03:48→18:18)
[2017-07-21] MEDS: MORPHINE SULFATE 15 MG CONTROLLED RELEASE TAB PO SCH ×3 (05:28→21:43)
--- NOTE | 2017-07-21 06:22 | MB ---
cc: RUBA DE LE[facility]N [facility] DATE OF CONSULTATION: 07/20/2017 REQUESTING PHYSICIAN: Dr. Canales REASON FOR CONSULTATION: Evaluate for lung infiltrate and possible bronchoscopy. HISTORY OF PRESENT ILLNESS: Ms. Boo is a pleasant 62-year-old white female who was admitted in this hospital in May 2017. At that time she was found to have extensive lung infiltrates. She was treated with antibiotic and she went to her rn endoscopy, Dr. Presley, and she was going to be considered for possible bronchoscopy. The patient states that she is getting more short of breath. Last week she went to [employer] and was able to walk a significant distance but this week she has been more short of breath and she also had low-grade fever and sweating, that is why she decided to come to the emergency room. She had cough, no sputum production, no hemoptysis. No change in her weight. She had a workup done in the hospital. WBC 5.7, hemoglobin 14.2, hematocrit 43.9, MCV 86, platelet count 224. Sodium 137, potassium 3.2, chloride 98, CO2 29, BUN 23, creatinine 0.78. Her influenza antigen is negative. Blood cultures so far are negative. PAST MEDICAL HISTORY: Significant for: 1. History of hypercholesterolemia. 2. Arthritis. 3. Left hip replacement. MEDICATIONS: 1. Protonix 40 milligrams a day. 2. Aldactone 25 milligrams a day. 3. Vancomycin IV. 4. Morphine for pain. 5. Neurontin 100 milligrams twice a day. 6. Meloxicam 7.5 milligrams twice a day. 7. Singular 10 milligrams. 8. Albuterol and atrovent nebulizer treatment. 9. Levaquin 750 milligrams a day. 10. Lovenox 30 milligrams a day. 11. Carafate one gram 3x a day. ALLERGIES: PENICILLIN SOCIAL HISTORY: She has history of smoking which she quit 10 years ago. She does not drink. 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 FAMILY HISTORY: She is single, lives with her significant other for the last 17 years. She has no children. REVIEW OF SYSTEMS She has been having increasing shortness of breath. Weight is stable. No DVT or pulmonary embolism. No seizure, stroke or epilepsy. No malignancy. PHYSICAL EXAMINATION Reveals a moderately well-nourished female not in acute distress. VITAL SIGNS: Blood pressure 95/61, heart rate 97, respiratory rate 16, temperature 99.2. HEENT: Pupils are equal and reactive to light. Oral mucosa, nasal mucosa normal. Neck: Supple. JVP not raised. Chest: Scattered rales, more on the right side. Abdomen: Benign. Extremities: No edema. IMPRESSION 1. Right lung infiltrate on her previous CT scan. The infiltrate is very extensive, and has nodular complement in it. 2. Dyspnea. 3. Arthritis. PLAN: I discussed with the patient, we will check her culture. I will check pneumococcal and Legionella urine antigen. Will repeat a CT scan of the chest. If the infiltrates is still persistent then we will consider bronchoscopy. Further treatment will depend on the course in the hospital. Thank you, Dr. Canales, for this consult. Ruba De León MD ADA/HUMBERTO /7:38 PM /5:59 AM
[2017-07-21] MEDS: RESP: ACETYLCYSTEINE 10% 10 ML NEB NEB SCH ×3 (08:00→20:00)
[2017-07-21] MEDS: RESP: ALBUTEROL 2.5 MG/IPRATROPIUM 0.5 MG NEB (SCH) NEB ×3 (09:20→20:00)
[2017-07-21] MEDS: VANCOMYCIN INJ 750 MG in SODIUM CHLOR 0.9% 250 ML INJ 250 ML IV SCH ×2 (09:50→20:49)
[2017-07-21] MEDS: SPIRONOLACTONE 25 MG TAB PO SCH (09:51)
[2017-07-21] MEDS: SUCRALFATE 1 GM TAB PO SCH ×3 (09:51→18:17)
[2017-07-21] MEDS: PANTOPRAZOLE SOD 40 MG DELAYED RELEASE TAB PO SCH (09:51)
[2017-07-21] MEDS: MULTIVITAMIN TAB PO SCH (09:51)
[2017-07-21] MEDS: GABAPENTIN 100 MG CAP PO SCH ×2 (09:52→21:43)
[2017-07-21 10:00] LABS: CREATININE 0.42 MG/DL (0.50-1.00)
--- NOTE | 2017-07-21 12:51 | HHI.PR ---
Subjective Remarks Nursing denies any deterioration since last night. Patient herself says she feels much better today. Thinks the antibiotics have helped tremendously. Denies having any shortness of breath. Objective Vital Signs Date Time Temp Pulse Resp B/P (MAP) Pulse Ox O2 Delivery O2 Flow Rate FiO2 07/21/17 09:20 98 21 07/21/17 08:00 97.0 76 16 112/72 (85) 96 07/21/17 00:00 98.1 81 18 102/66 (78) 97 07/20/17 20:00 98.1 89 18 101/64 (76) 94 07/20/17 19:44 97 21 07/20/17 16:30 99.2 97 16 95/61 (72) 98 07/20/17 15:10 07/20/17 14:50 97 18 94/50 (65) 96 Nasal Cannula 2.00 07/20/17 13:22 98.0 07/20/17 13:20 96 18 100/58 (72) 96 Nasal Cannula 2.00 I/O 07/20/17 07/20/17 07/20/17 07/21/17 07/21/17 07/21/17 07:00 15:00 23:00 07:00 15:00 23:00 Intake Total 1400 ml 3050 ml 1480 ml 257.5 ml Balance 1400 ml 3050 ml 1480 ml 257.5 ml Intake Oral 600 ml 480 ml IV Total 1400 ml 2450 ml 1000 ml 257.5 ml # Voids 3 # Bowel Movements 0 Result Diagram: 07/20/17 1220 07/21/17 0844 Objective Remarks no cyanosis, Right-sided crackles, clear left side. Unlabored breathing Appears comfortable in bed A/P Assessment and Plan 62-year-old white female being admitted for possible pneumonia superimposed upon inflammatory lung disease Lactic acidosis w/ mild transient hypotension - improving, likely resolved after IVFs from yesterday Possible bacterial pneumonia - Flu negative. Blood cultures obtained, antibiotics started. - I independently reviewed the chest x-ray which appears to be unchanged from before, does show diffuse infiltrates on the right lung field, mild infiltrates in the left base - Saturating well on room air at 95%. continue the vancomycin, and Levaquin. - Duonebs w/ Mucomyst and sputum culture. Suspected inflammatory lung disease - Appreciate pulm consult, CT performed per their request, awaiting their decision for bronchoscopy arthritis - continue home meds Lovenox Anticipate another day of IV antibiotics and possible discharge tomorrow only pulmonology does not feel the need for bronchoscopy is warranted any further. Karsten Canales MD Jul 21, 2017 12:51
[2017-07-21] MEDS: methylPREDNISolone SOD SUCC 125 MG/2 ML VIAL IV PUSH SCH ×2 (13:20→21:44)
[2017-07-21] MEDS: MELOXICAM 7.5 MG TAB PO SCH ×2 (13:21→21:43)
[2017-07-21] MEDS ORDERED: LEVOFLOXACIN 750 MG TAB PO SCH (18:00)
[2017-07-21] MEDS: ENOXAPARIN SODIUM 30 MG/0.3 ML SYRINGE SQ SCH (18:17)
--- NOTE | 2017-07-21 18:29 | HHI.PR ---
Subjective Remarks 62 YOWF with Lung infilt Breathing betetr no Fever CT Chest sig improved lung infilt Objective Vital Signs Vital Signs Date Time Temp Pulse Resp B/P (MAP) Pulse Ox O2 Delivery O2 Flow Rate FiO2 07/21/17 14:21 18 07/21/17 12:00 98.1 89 16 112/85 (94) 96 07/21/17 09:20 98 21 07/21/17 08:00 97.0 76 16 112/72 (85) 96 07/21/17 00:00 98.1 81 18 102/66 (78) 97 07/20/17 20:00 98.1 89 18 101/64 (76) 94 07/20/17 19:44 97 21 I/O 07/20/17 07/20/17 07/20/17 07/21/17 07/21/17 07/21/17 07:00 15:00 23:00 07:00 15:00 23:00 Intake Total 1400 ml 3050 ml 1480 ml 257.5 ml Balance 1400 ml 3050 ml 1480 ml 257.5 ml Intake Oral 600 ml 480 ml IV Total 1400 ml 2450 ml 1000 ml 257.5 ml # Voids 3 # Bowel Movements 0 Result Diagram: 07/20/17 1220 07/21/17 0844 Objective Remarks GENERAL: MBMN WF,NAD SKIN: Warm and dry. HEAD: Normocephalic. EYES: No scleral icterus. No injection or drainage. NECK: Supple, trachea midline. No JVD or lymphadenopathy. CARDIOVASCULAR: Regular rate and rhythm without murmurs, gallops, or rubs. RESPIRATORY: Breath sounds equal bilaterally. No accessory muscle use. Rales right chest GASTROINTESTINAL: Abdomen soft, non-tender, nondistended. MUSCULOSKELETAL: No cyanosis, or edema. BACK: Nontender without obvious deformity. No CVA tenderness. A/P Assessment and Plan Right lung infilterates, improving compared to previous CT Dysnoea Arthritis PLAN: Cont Abx Aerosol nebs IV Solumedrol Will need rpt CT 4 weeks and decide for bronch Eugenio Torres MD Jul 21, 2017 18:29
[2017-07-21] MEDS ORDERED: ESZOPICLONE 3 MG TAB PO SCH (21:00)
[2017-07-21] MEDS: MONTELUKAST SODIUM 10 MG TAB PO SCH (21:43)
[2017-07-22] VITALS: BP 164/91; PULSE 75; RESP 18; TEMP 97.5; O2SAT 95
[2017-07-22] MEDS: SODIUM CHLOR 0.9% 1000 ML INJ 1,000 ML IV SCH (03:26)
[2017-07-22] MEDS: MORPHINE SULFATE 15 MG CONTROLLED RELEASE TAB PO SCH (05:37)
[2017-07-22] MEDS ORDERED: methylPREDNISolone SOD SUCC 125 MG/2 ML VIAL IV PUSH SCH (06:00)
[2017-07-22] MEDS: RESP: ALBUTEROL 2.5 MG/IPRATROPIUM 0.5 MG NEB (SCH) NEB (07:36)
[2017-07-22] MEDS: RESP: ACETYLCYSTEINE 10% 10 ML NEB NEB SCH (07:38)
[2017-07-22 07:40] VITALS: O2SAT 96
[2017-07-22] MEDS ORDERED: PHARMACY ORDERED LAB ONE (07:45)
[2017-07-22 08:00] VITALS: BP 126/77; PULSE 93; RESP 20; TEMP 96.3; O2SAT 96
[2017-07-22] MEDS: SUCRALFATE 1 GM TAB PO SCH (08:21)
[2017-07-22] MEDS: MELOXICAM 7.5 MG TAB PO SCH (08:21)
[2017-07-22] MEDS: GABAPENTIN 100 MG CAP PO SCH (08:22)
[2017-07-22] MEDS: SPIRONOLACTONE 25 MG TAB PO SCH (08:22)
[2017-07-22] MEDS: PANTOPRAZOLE SOD 40 MG DELAYED RELEASE TAB PO SCH (08:22)
[2017-07-22] MEDS: MULTIVITAMIN TAB PO SCH (08:22)
[2017-07-22] MEDS: VANCOMYCIN INJ 750 MG in SODIUM CHLOR 0.9% 250 ML INJ 250 ML IV SCH (08:29)
[2017-07-22] MEDS ORDERED: DOXY100C PO (12:07)
[2017-07-22] MEDS ORDERED: LEVA750T9 PO (12:07)
[2017-07-22] MEDS ORDERED: PRED10PA PO (12:08)
--- NOTE | 2017-07-22 12:08 | HHI.DCPOC ---
Discharge Care Plan Diagnosis: (1) Pneumonia Goals to Promote Your Health * To prevent worsening of your condition and complications * To maintain your health at the optimal level Directions to Meet Your Goals Take your medications as prescribed Follow your dietary instruction Follow activity as directed Keep your appointments as scheduled Take your immunizations and boosters as scheduled If your symptoms worsen call your PCP, if no PCP go to Urgent Care Center or Emergency Room Smoking is Dangerous to Your Health. Avoid second hand smoke Call the 24-hour hour crisis hotline for domestic abuse at Karsten Canales MD Jul 22, 2017 12:08
[2017-07-22] MEDS ORDERED: SYMB80AE INH (12:11)
--- NOTE | 2017-07-22 12:12 | HHI.PR ---
Subjective Remarks Nursing denies any deterioration since last night. Patient herself says she feels good. is happy at the thought of being able to go home. Objective Vital Signs Date Time Temp Pulse Resp B/P (MAP) Pulse Ox O2 Delivery O2 Flow Rate FiO2 07/22/17 08:00 96.3 93 20 126/77 (93) 96 07/22/17 07:40 96 21 07/22/17 00:00 97.5 75 18 164/91 (115) 95 07/21/17 22:20 98 21 07/21/17 19:18 97.5 86 20 161/80 (107) 94 07/21/17 16:00 98.7 95 18 118/62 (80) 100 07/21/17 14:21 18 I/O 07/21/17 07/21/17 07/21/17 07/22/17 07/22/17 07/22/17 07:00 15:00 23:00 07:00 15:00 23:00 Intake Total 1480 ml 257.5 ml 600 ml 3458 ml Balance 1480 ml 257.5 ml 600 ml 3458 ml Intake Oral 480 ml 600 ml 858 ml IV Total 1000 ml 257.5 ml 2600 ml # Voids 3 4 4 # Bowel Movements 0 0 Result Diagram: 07/20/17 1220 07/21/17 0844 Objective Remarks Coarse breath sounds bilaterally, unlabored breathing, no acute distress A/P Assessment and Plan 62-year-old white female being admitted for possible pneumonia superimposed upon inflammatory lung disease Patient's overall respiratory status has returned to baseline. She is going to be discharged with by mouth antibiotics, by mouth steroids, and inhaled corticosteroids as well. Discussed case with pulmonology who says that the CAT scan shows improvement in her lung tissue in comparison to previous film. To follow up outpatient pulmonology. Patient has met maximal benefit from hospitalization and is clinically stable for discharge. Karsten Canales MD Jul 22, 2017 12:12
[2017-07-22] MEDS ORDERED: VANCOMYCIN 1,000 MG/NS 250 ML IV SCH ×2 (16:00)
[2017-07-23] MEDS ORDERED: PHARMACY ORDERED LAB ONE (15:45)
== END 2017-07-22 13:52 | disposition home or self-care (01) | DRG 194 ==
LOC: PHED 11:35 → PHEDA 13:41 → PH3B 14:57
PROVIDERS: ADMIT Hospitalist; ATTEND Hospitalist
DX: J18.9 Pneumonia, unspecified organism (principal); E87.2 Acidosis; E78.00 Pure hypercholesterolemia, unspecified; J98.4 Other disorders of lung; E86.0 Dehydration; G47.00 Insomnia, unspecified; J45.909 Unspecified asthma, uncomplicated; R09.02 Hypoxemia; M19.90 Unspecified osteoarthritis, unspecified site; F41.9 Anxiety disorder, unspecified; Z88.0 Allergy status to penicillin; Z87.891 Personal history of nicotine dependence; Z96.642 Presence of left artificial hip joint
CPT/HCPCS: 71045; 71250; 80053; 80202; 81001; 82565; 83605; 85025; 87040; 87070; 87205; 87449; 87804; 94640; 94664; 96360; J1650; J1956; J2930; J3370; J7030; J7050; J7608